=== PATIENT | male | born 1940 | race Caucasian/White ===

== ENCOUNTER 2016-09-22 07:36 | Emergency (ER) | payer OTHER ==
[~2016-09-22] VITALS: Ht 167.6 cm; Wt 90.2 kg
[~2016-09-22 07:36] MED LIST: INSDGI SC; LSNUNK; ZCRUNK
[2016-09-22 07:40] VITALS: TEMP 36.4; Ht 167.6 cm; Wt 90.2 kg
--- NOTE | 2016-09-22 08:02 | EMERGENCY ROOM VISIT NOTE ---
History First contact with patient: 07:45 Chief Complaint: SHOULDER PAIN Stated Complaint: RIGHT SHOULDER INJURY History of Present Illness The patient is a 76 year old male who presents to the Emergency Room with complaints of right shoulder pain Patient did some heavy lifting on Thursday, was fine then and most of Thursday. However, pain started Thursday evening. Described as dull pain, which becomes sharp with movement. Pain felt deep over the right scapula, associated with soreness in right upper arm. Pain exacerbated by movement, alleviated by rest. It had worsened overnight while sleeping with increased stiffness - had to dress him this morning because painful to move. But it has improved since this morning. Patient did not try any analgesics or heat/ice. Denies any swelling, skin redness, or discolouration. Denies trauma or fall. Previous injury to the arm - patient claims he had a muscle tear in is right upper arm previously Review of Systems See HPI for pertinent positives and negatives. A total of ten systems were reviewed and were otherwise negative. Past Medical/Surgical History Medical Problems: (1) Coronary artery disease (2) DIAB W OTH SPEC MANIFEST, TYPE II OR UNSPEC TYPE, NOT UNCNTR (3) HYPERTENSION NOS Surgical Problems: (1) H/O percutaneous transluminal coronary angioplasty (2) Stented coronary artery Family History Cancer Diabetes mellitus Heart disease Hypertension Social History Smoking Status: Never Smoker Marital Status: Housing Status: lives with significant other Occupation Status: retired Current/Historical Medications Scheduled Aspirin (Aspirin Ec), 81 MG PO DAILY Clopidogrel (Plavix Unknown Dose), 75 MG PO DAILY Insulin Aspart (Novolog), 15 UNITS SC TIDM Insulin Detemir (Levemir), 12 UNITS SC BID Losartan Potassium (Losartan Potassium), Unknown Dose PO DAILY Miscellaneous Medications Metoprolol Succ (Toprol Xl) (Toprol-Xl Unkown Dose) Allergies Coded Allergies: No Known Allergies (Unverified , 09/22/16) Physical Exam Vital Signs Date Time Temp Pulse Resp B/P Pulse Ox O2 Delivery O2 Flow Rate FiO2 09/22/16 08:49 73 153/71 97 09/22/16 07:40 36.4 73 17 155/78 97 Room Air Physical Exam GENERAL: alert, well appearing, well nourished, sitting in bed, no acute distress, non-toxic HEAD: Normocephalic, atraumatic. No sinus tenderness. EYES: PERRL, EOMI, normal conjunctiva OROPHARYNX: no exudate, no erythema, lips, buccal mucosa, and tongue normal and mucous membranes are dry NECK: supple, no nuchal rigidity, no adenopathy, non-tender LUNGS: Clear to auscultation. Normal chest wall mechanics, good air entry. No crepitations, crackles, or wheezes HEART: no murmurs, S1 normal and S2 normal CHEST: No reproducible tenderness. ABDOMEN: abdomen soft, non-tender, normo-active bowel sounds, no masses, no rebound or guarding. BACK: Back is symmetrical on inspection, no deformities, no midline tenderness, no CVA tenderness. Some tenderness on posterolateral ribs on right side. No swelling or bruising. SKIN: Warm, pink, dry. No erythema, rashes, or bruising. EXTREMITIES: Grossly normal. Moving all 4 limbs, strength 5/5. No pitting edema. Calves non tender. MSK: Slightly reduced ROM in right should on forward flexion, but patient denies pain on movement. 5/5 strength in upper limbs. NEURO: Alert, Ox3. No focal deficits. Normal sensorium, cranial nerves II-XII grossly intact, normal speech. Kernig and Brudzinski negative PSYCH: Mood and affect appropriate. Medical Decision & Procedures ER Provider Diagnostic Interpretation: RIGHT SHOULDER MIN 2 VIEWS ROUTINE CLINICAL HISTORY: Right shoulder pain COMPARISON: None. DISCUSSION: The patient can internally and externally rotate fully. No fractures or dislocations are visualized. There are no visible periarticular calcifications. No destructive lesions are evident. There is no evidence for soft tissue swelling. IMPRESSION: No fractures or dislocations identified. There are no visible periarticular calcifications. RIGHT RIBS UNILATERAL WITH PA CHEST CLINICAL HISTORY: Right rib pain following injury. COMPARISON STUDY: No previous studies for comparison. FINDINGS: There is no pneumothorax or pleural effusion. Cardiac size is within normal limits. There is no evidence of pulmonary edema. Minimal left lower lung opacity may reflect atelectasis. There is a suspected hiatal hernia. No definite acute right rib fractures are identified. There are deformities of the anterior right seventh and eighth ribs. IMPRESSION: No pneumothorax. Deformities of the anterior right seventh and eighth ribs. Although age indeterminate, the appearance favors old fractures. Medical Decision 76 year old male presented with right shoulder pain The patient was evaluated in room C6. A complete history and physical exam was performed. Etiologies such as soft tissue injury, fracture, dislocation, neurovascular compromise, compartment syndrome, as well as others were entertained. Patient declined analgesics for symptom relief. CXR reported no fractures or dislocations identified. There are no visible periarticular calcifications. No pneumothorax. Deformities of the anterior right seventh and eighth ribs. Although age indeterminate, the appearance favors old fractures. Likely diagnosis is thoracic back pain. As such, patient advised for conservative management with Tylenol or Motrin for pain relief and increased oral fluid intake to improve hydration status. Patient understands and agreeable with care plan. Patient discharged home well. Impression Primary Impression: Back pain, thoracic Departure Information Dispostion Home / Self-Care Condition GOOD Referrals Perico Peña M.D.(DANNI) (PCP) Patient Instructions A Signature Page, My [facility]
--- NOTE | 2016-09-22 08:23 | EMERGENCY ROOM VISIT NOTE ---
History Report prepared by Jennifer: Micki Castle Under the Supervision of: Dr. Landon Ball M.D. First contact with patient: 07:45 Chief Complaint: SHOULDER PAIN Stated Complaint: RIGHT SHOULDER INJURY History of Present Illness The patient is a 76 year old male who presents to the Emergency Room with complaints of persistent right shoulder pain that began last evening. He currently rates his discomfort as an 8/10 in severity. The patient states that on Thursday he was doing some heavy lifting and states that he was feeling fine all day on Thursday. He states that he developed sharp pain on Thursday evening. The patient states that his pain is worsened with movement, noting that it is sharp, but states that it is dull with slight movement. He states that his pain is alleviated with rest. The patient denies any chest pain, shortness of breath, or fever today and denies the pain radiating to any other part of his body. He states that he has not taken anything for his discomfort. The patient states that his pain worsened over night, noting that he woke up stiff. Source of History: patient Onset: last evening Position: shoulder (right) Symptom Intensity: 8/10 Quality: sharp, dull Timing: other (persistent) Modifying Factors (Worsening): movement Modifying Factors (Relieving): rest ( ) Associated Symptoms: No SOB, No chest pain Note: Associated Symptoms: woke up stiff Review of Systems See HPI for pertinent positives & negatives. A total of 10 systems reviewed and were otherwise negative. Past Medical & Surgical Medical Problems: (1) Coronary artery disease (2) DIAB W OTH SPEC MANIFEST, TYPE II OR UNSPEC TYPE, NOT UNCNTR (3) HYPERTENSION NOS Surgical Problems: (1) H/O percutaneous transluminal coronary angioplasty (2) Stented coronary artery Family History Cancer Diabetes mellitus Heart disease Hypertension Social History Smoking Status: Never Smoker Marital Status: Housing Status: lives with significant other Occupation Status: retired Current/Historical Medications Scheduled Aspirin (Aspirin Ec), 81 MG PO DAILY Clopidogrel (Plavix Unknown Dose), 75 MG PO DAILY Insulin Aspart (Novolog), 15 UNITS SC TIDM Insulin Detemir (Levemir), 12 UNITS SC BID Losartan Potassium (Losartan Potassium), Unknown Dose PO DAILY Miscellaneous Medications Metoprolol Succ (Toprol Xl) (Toprol-Xl Unkown Dose) Allergies Coded Allergies: No Known Allergies (Unverified , 09/22/16) Physical Exam Vital Signs Date Time Temp Pulse Resp B/P Pulse Ox O2 Delivery O2 Flow Rate FiO2 09/22/16 08:49 73 153/71 97 09/22/16 07:40 36.4 73 17 155/78 97 Room Air Physical Exam GENERAL: Patient is a healthy-appearing well-nourished HEAD: Normocephalic atraumatic EYES: Ocular movements intact pupils equal and react to light OROPHARYNX mucous membranes are moist no exudates present no erythema or edema present NECK: Supple no nuchal rigidity CHEST: Good equal expansion LUNGS: Clear and equal to auscultation CARDIAC: Normal S1 and S2 ABDOMEN: Soft nontender no guarding BACK: Point tender to the 8th and 9th rib area on back. No midline tenderness. EXTREMITIES: No pain upon palpation normal muscle strength in all groups no clubbing cyanosis or edema NEURO: Patient is following commands is answering questions appropriately. Alert and oriented x3 Cranial Nerves 2-12 grossly intact Medical Decision & Procedures ER Provider Diagnostic Interpretation: X-ray results as stated below per interpretation by me and the radiologist: RIGHT RIBS UNILATERAL WITH PA CHEST CLINICAL HISTORY: Right rib pain following injury. COMPARISON STUDY: No previous studies for comparison. FINDINGS: There is no pneumothorax or pleural effusion. Cardiac size is within normal limits. There is no evidence of pulmonary edema. Minimal left lower lung opacity may reflect atelectasis. There is a suspected hiatal hernia. No definite acute right rib fractures are identified. There are deformities of the anterior right seventh and eighth ribs. IMPRESSION: No pneumothorax. Deformities of the anterior right seventh and eighth ribs. Although age indeterminate, the appearance favors old fractures. Electronically signed by: Vinay Graham M.D. 09/22/2016 8:35 AM Dictated Date/Time: 09/22/2016 8:30 AM RIGHT SHOULDER MIN 2 VIEWS ROUTINE CLINICAL HISTORY: Right shoulder pain COMPARISON: None. DISCUSSION: The patient can internally and externally rotate fully. No fractures or dislocations are visualized. There are no visible periarticular calcifications. No destructive lesions are evident. There is no evidence for soft tissue swelling. IMPRESSION: No fractures or dislocations identified. There are no visible periarticular calcifications. Electronically signed by: Dillon Alvarez M.D. 09/22/2016 8:32 AM Dictated Date/Time: 09/22/2016 8:31 AM ED Course 0746: Past medical records reviewed. The patient was evaluated in room B6. A complete history and physical examination was performed by the resident. 0815: Past medical records reviewed. The patient was evaluated in room B6. A complete history and physical examination was performed. 0842: I reevaluated the patient and he is resting comfortably. I discussed the exam findings with him and I discussed the treatment plan. He verbalized complete understanding and agreement. He is ready to go home. Medical Decision Differential diagnosis: Etiologies such as fracture, dislocation, neurovascular compromise, compartment syndrome, soft tissue injury, as well as others were entertained. This is a 76-year-old male who presents emergency department complaining of muscle skeletal back pain. The patient reports that the pain was worse when he is straining his back. He reports he was lifting large bags foreign several days ago. The patient reports that the pain is much better after stretching today. He is refusing pain medication in the emergency department. His x-rays are consistent with rib fractures in the Gen area for where the patient is having pain. I encouraged follow-up with orthopedics if he is continuing to have pain. I also recommended that he return to the emergency department if he develops any chest pain or shortness of breath. Patient was in agreement with the treatment plan. Resident Physician Supervision Note: I was present with Dr. Collins during the history and exam. I discussed the case with the resident and agree with the findings and plan as documented in the note. Documented By: Landon Ball Impression Primary Impression: Back pain, thoracic Scribe Attestation The scribe's documentation has been prepared under my direction and personally reviewed by me in its entirety. I confirm that the note above accurately reflects all work, treatment, procedures, and medical decision making performed by me. Departure Information Dispostion Home / Self-Care Referrals Perico Peña M.D.(DANNI) (PCP) Forms HOME CARE DOCUMENTATION FORM, IMPORTANT VISIT INFORMATION, School Instructions, Work Instructions Patient Instructions A Signature Page, ED Back Care Tips, Exercises Back Seated Rotation, Exercises Back Side Stretch, My [facility], Safety Back Basics Good Posture Additional Instructions Follow up with Dr Nixon's office You have been examined and treated today on an emergency basis only. This is not a substitute for, or an effort to provide, complete comprehensive medical care. It is impossible to recognize and treat all injuries or illnesses in a single emergency department visit. It is therefore important that you follow up closely with Dr Peña. Call as soon as possible for an appointment. Thank you for your time and consideration. I look forward to speaking with you again soon. Please don't hesitate to call us if you have any questions.
[2016-09-22] MEDS ORDERED: ASPI81TA28 PO (08:33)
[2016-09-22] MEDS ORDERED: LVMI SC (08:33)
[2016-09-22] MEDS ORDERED: CZR50 PO (08:33)
--- NOTE | 2016-09-22 08:34 | DIAGNOSTIC IMAGING REPORT ---
RIGHT SHOULDER MIN 2 VIEWS ROUTINE CLINICAL HISTORY: Right shoulder pain COMPARISON: None. DISCUSSION: The patient can internally and externally rotate fully. No fractures or dislocations are visualized. There are no visible periarticular calcifications. No destructive lesions are evident. There is no evidence for soft tissue swelling. IMPRESSION: No fractures or dislocations identified. There are no visible periarticular calcifications. Electronically signed by: Dillon Alvarez M.D. 09/22/2016 8:32 AM Dictated Date/Time: 09/22/2016 8:31 AM
--- NOTE | 2016-09-22 08:37 | DIAGNOSTIC IMAGING REPORT ---
RIGHT RIBS UNILATERAL WITH PA CHEST CLINICAL HISTORY: Right rib pain following injury. COMPARISON STUDY: No previous studies for comparison. FINDINGS: There is no pneumothorax or pleural effusion. Cardiac size is within normal limits. There is no evidence of pulmonary edema. Minimal left lower lung opacity may reflect atelectasis. There is a suspected hiatal hernia. No definite acute right rib fractures are identified. There are deformities of the anterior right seventh and eighth ribs. IMPRESSION: No pneumothorax. Deformities of the anterior right seventh and eighth ribs. Although age indeterminate, the appearance favors old fractures. Electronically signed by: Vinay Graham M.D. 09/22/2016 8:35 AM Dictated Date/Time: 09/22/2016 8:30 AM
[2016-09-22 08:49] VITALS: BP 153/71; PULSE 73; O2SAT 97
[2016-09-22] MEDS ORDERED: NVLGI SC (18:33)
[2016-09-22] MEDS ORDERED: TPRSRUNK (18:33)
[2016-09-22] MEDS ORDERED: PLVUNK PO (18:33)
== END 2016-09-22 08:50 | disposition home or self-care (01) ==
LOC: C.EDB 07:38
DX: M54.6 Pain in thoracic spine (principal); M25.511 Pain in right shoulder; I25.10 Atherosclerotic heart disease of native coronary artery without angina pectoris; I10 Essential (primary) hypertension; E11.9 Type 2 diabetes mellitus without complications; Z98.61 Coronary angioplasty status; Z79.4 Long term (current) use of insulin; Z79.02 Long term (current) use of antithrombotics/antiplatelets; Z79.82 Long term (current) use of aspirin; Z79.899 Other long term (current) drug therapy

== ENCOUNTER → 2018-04-22 | Outpatient (CLI) | payer OTHER ==
[~2018-04-22] MED LIST changes: +ASPI81TA28 PO; +CZR50 PO; -INSDGI SC; -LSNUNK; +LVMI SC; +NVLGI SC; +PLVUNK PO; +TPRSRUNK; -ZCRUNK
[2018-04-22 15:15] LABS: CREATININE RANDOM URINE 86.7 mg/dl
== END | disposition home or self-care (01) ==
LOC: C.LAB1850 13:45
PROVIDERS: ATTEND Internal Medicine Endocrinology, Diabetes & Metabolism
DX: E10.9 Type 1 diabetes mellitus without complications (principal); Z79.4 Long term (current) use of insulin

== ENCOUNTER 2024-03-23 11:26 | Inpatient (IN) ==
--- NOTE | 2024-03-23 12:13 | Emergency Department Note ---
Impression & Plan Acute appendicitis, DM type 1 (diabetes mellitus, type 1) ED Provider Note Provider: Jatinder Oliva MD DATE OF SERVICE: 03/23/2024 CHIEF COMPLAINT: Right lower quadrant abdominal pain HISTORY OF PRESENT ILLNESS: Patient is a 84-year-old gentleman history of CAD on Plavix, type 1 diabetes presenting here today with 2 days of pain in the right lower quadrant. States he was planning on Thursday but did not have any kick backs or significant trauma and developed then some pain in right upper quadrant worsened yesterday and not been eating well and resting more. No significant diarrhea or urinary issues reported. No significant back pain or chest pain. Pain worse with moving and touch to the right lower quadrant. No large masses reported. Did take some Tylenol yesterday with limited improvement of pain. Does report having some chills. Came here for further evaluation. Denies any history of significant intra-abdominal surgeries. No radiation of the pain down the legs. No significant back pain reported. PAST MEDICAL HISTORY: As noted above MEDICATIONS: Reviewed medications includes continuous glucose monitor SOCIAL HISTORY: Non-smoker PHYSICAL EXAM: GENERAL: alert and oriented in no acute distress on stretcher Head: normocephalic and atraumatic EYES: No injection, discharge or icterus. NECK: Trachea midline. Supple. ENT: Mucous membranes pink and moist. LUNGS: Airway patent. No retractions or tachypnea HEART: Regular rate and rhythm. No chest wall tenderness ABDOMEN: Soft significant focal tenderness in right lower quadrant without obvious appreciable mass or hernia. Minimal to no tenderness the right upper quadrant no tenderness in the left side of the abdomen. SKIN: Acyanotic, warm, dry, without rashes EXTREMITIES: Without swelling, tenderness or deformity NEUROLOGICAL: No focal deficits. No aphasia. No facial droop or slurred speech. Normal strength and tone in the extremities. Sensation to gross touch normal. Ambulatory but with some discomfort due to pain in the right lower abdomen EK bpm sinus rhythm with occasional supraventricular complexes. No acute ST segment elevation or depression with a QTc of 432. CONTINUOUS CARDIAC MONITORING: was ordered and showed a heart rate of 70s-80s bpm in sinus rhythm occasional PACs Patient's laboratory studies and imaging reviewed. Differential includes Appendicitis, testicular torsion, infections, diverticulitis, UTI, obstruction, mesenteric ischemia, aortic pathology, inflammatory bowel disease, renal colic, PUD, pancreatitis, biliary pathology, hernia, volvulus, constipation, as well as other pathologies. IMPRESSION/MEDICAL DECISION MAKING: Right lower quadrant pain. Possible appendicitis versus kidney stone versus hernia versus colitis. Patient with decent mount of pain but not febrile or hypotensive. No chest pain or significant shortness of breath reported. Type 1 diabetes and cardiac history is relayed however. Seems atypical given location for cholecystitis or pancreatitis. Not peritoneal but fairly tender in the right lower quadrant. Denies symptoms. Urinalysis negative for signs of infection. Later given low bit of fentanyl for pain with improvement of this. Imaging consistent with nonperforated appendicitis. Leukocytosis inconsistent as well. No evidence of hepatitis or pancreatitis. Urinalysis negative. Given some Bentyl for pain. Cover Zosyn for antibiotics. Reach out to general surgery given the findings discussed surgical intervention. They recommended medical admission at this time and they will follow in consult. Hospitalist was consulted. DIAGNOSIS: Acute appendicitis DISPOSITION: Hospitalist will evaluate as well as the general surgery team Patient was agreeable with this plan. Past Med/Surg History Problem List (Updated 03/23/24 @ 16:01 by Jatinder Oliva M.D.) DM type 1 (diabetes mellitus, type 1) (Acute) Acute appendicitis (Acute) Vitamin D deficiency Coronary artery disease (Chronic) Stented coronary artery (Chronic) Back pain, thoracic (Acute) Social History Smoking Status: Never smoker Feels Safe at Home: Yes Allergies Allergies Allergy/AdvReac Type Severity Reaction Status Date / Time [place] And Derivatives Allergy Severe Swelling Unverified 03/23/24 14:56 of Lip/Tongue/Throat lisinopril Allergy Verified 03/23/24 14:56 Home Meds Home Medications Medication Instructions Recorded Confirmed atorvastatin 40 mg tablet 40 mg PO HS #90 tabs 06/21/19 03/23/24 clopidogrel 75 mg tablet 75 mg PO DAILY 06/21/19 03/23/24 metoprolol succinate 100 mg 100 mg PO DAILY 06/21/19 03/23/24 tablet,extended release 24 hr omeprazole magnesium 20 mg 20 mg PO DAILY 06/21/19 03/23/24 tablet,delayed release blood sugar diagnostic (OneTouch #10 ea 06/23/19 06/25/23 Ultra Blue Test Strip) tamsulosin 0.4 mg capsule (Flomax) 0.4 mg PO DAILY 12/25/20 03/23/24 glucagon 3 mg/actuation nasal 3 mg intranasal DAILY PRN 05/15/22 03/23/24 spray (Baqsimi) Hypoglycemia Previous Rx's Medication Instructions Recorded BD Ultra-Fine Eleanor Pen Needle 32 #400 ea 06/06/19 gauge x 5/32" (pen needle, diabetic) insulin pump cartridge #40 ea 10/11/22 insulin glargine 100 unit/mL (3 30 unit (0.3 mL) subcut DAILY #15 01/03/23 mL) subcutaneous pen (Lantus mL Solostar U-100 Insulin) insulin aspart U-100 100 unit/mL 66 unit (0.66 mL) subcut ONCE #60 11/13/23 subcutaneous solution (Novolog mL U-100 Insulin aspart) insulin pump cart,automated,BT #45 ea 11/13/23 (Omnipod 5 G6 Pods (Gen 5) subcutaneous cartridge) insulin pump cartridge,automated #1 ea 02/11/24 dose,BT with controller subcutaneous (Omnipod 5 G6 Intro Kit (Gen 5) subcutaneous cartridge with controller) Results & Data (ED) Vital Signs Vital Signs - 24 hr 03/23/24 11:29 03/23/24 12:28 03/23/24 14:08 Temperature 36.6 C Temperature Source Oral Pulse Rate 82 Pulse Rate [Left Finger] 74 74 Pulse Rhythm [Left Finger] Regular Regular Pulse Strength [Left Finger] Normal Normal Respiratory Rate 16 18 20 Respiratory Effort / Characteristics Non-Labored Spontaneous Non-Labored Spontaneous Non-Labored Spontaneous Respiratory Depth Normal Normal Normal Respiratory Pattern Regular Regular Blood Pressure 170/69 H Blood Pressure [Right Arm] 147/71 H 136/64 Blood Pressure Mean 102 Blood Pressure Mean [Right Arm] 96 88 Blood Pressure Position [Right Arm] Sitting Sitting Pulse Oximetry 94 95 95 Oxygen Delivery Method Room Air Room Air Room Air Sepsis Recent Fever Within 48 Hours No Sepsis New/Unexplained Change in Mental Status No Sepsis Action Taken by Nursing No Action Required 03/23/24 15:38 Temperature Temperature Source Pulse Rate Pulse Rate [Left Finger] 77 Pulse Rhythm [Left Finger] Pulse Strength [Left Finger] Respiratory Rate 16 Respiratory Effort / Characteristics Respiratory Depth Normal Respiratory Pattern Blood Pressure Blood Pressure [Right Arm] 125/68 Blood Pressure Mean Blood Pressure Mean [Right Arm] 87 Blood Pressure Position [Right Arm] Pulse Oximetry 93 Oxygen Delivery Method Room Air Sepsis Recent Fever Within 48 Hours Sepsis New/Unexplained Change in Mental Status Sepsis Action Taken by Nursing Laboratory Data 03/23/24 12:00 03/23/24 12:00 Lab Results 03/23/24 03/23/24 03/23/24 Range/Units 11:55 12:00 12:19 WBC 14.38 H (4.8-10.8) K/ul RBC 4.58 L (4.70-6.10) M/uL Hgb 14.0 (14.0-18.0) g/dl POC Hgb 15.0 (14.0-18.0) g/dl Hct 42.4 (42.0-52.0) % POC Hct 44 (42-52) % MCV 92.6 (80.0-100.0) fL MCH 30.6 (25.0-34.0) pg MCHC 33.0 (32.0-36.0) g/dL RDW Std Deviation 43.5 (36.4-46.3) fL RDW Coeff of Alyssa 12.8 (11.5-14.5) % Plt Count 186 (130-400) K/uL MPV 11.0 (9.4-12.4) fL Immature Gran % (Auto) 0.4 % Neut % (Auto) 85.3 % Lymph % (Auto) 6.7 % Upson % (Auto) 7.2 % Eos % (Auto) 0.1 % Baso % (Auto) 0.3 % Neut # (Auto) 12.26 H (1.40-6.50) K/uL Lymph # (Auto) 0.96 L (1.20-3.40) K/uL [place]pson # (Auto) 1.04 H (0.11-0.59) K/uL Eos # (Auto) 0.02 (0.00-0.50) K/uL Baso # (Auto) 0.04 (0.00-0.20) K/uL Immature Gran # (Auto) 0.06 (0.01-0.20) K/uL POC Sodium 134 L (135-144) mmol/L Sodium 135 L (136-145) mmol/L POC Potassium 4.6 (3.3-5.0) mmol/L Potassium 4.2 (3.5-5.1) mmol/L POC Chloride 99 L (101-112) mmol/L Chloride 100 (98-107) mmol/L Carbon Dioxide 28 (21-32) mmol/L POC Total CO2 28 (24-31) mmol/L Anion Gap 7 (3-11) POC Anion Gap 13.0 L (16-25) mmol/L POC BUN 23 H (7-18) mg/dl BUN 18 (6-23) mg/dl Creatinine 0.89 (0.6-1.4) mg/dl POC Creatinine 0.9 (0.6-1.3) mg/dl Est Cr Clr Drug Dosing 62.6 ml/min Est GFR ( Amer) 92.3 ml/min Est GFR (Non-Af Amer) 79.6 ml/min BUN/Creatinine Ratio 20.2 H (10-20) Glucose 96 (70-99(Fasting)) mg/dl POC Glucose (other) 95 (70-99) mg/dl Calcium 8.9 (8.6-10.3) mg/dl POC Ioniz Calcium Pura 1.08 L (1.12-1.32) mmol/l Total Bilirubin 1.0 (0.2-1.0) mg/dl AST 20 (13-39) U/L ALT 15 (7-52) U/L Alkaline Phosphatase 69 (34-104) U/L Troponin I High Sens 8.9 (0-20) pg/ml Total Protein 7.3 (6.0-8.3) gm/dl Albumin 4.1 (3.4-5.0) gm/dl Globulin 3.2 (2.5-4.0) gm/dl Albumin/Globulin Ratio 1.3 (0.9-2) Lipase < 3 L (11-82) U/L Urine Color Dark Yellow Urine Appearance Clear (Clear) Urine pH 5.0 (4.5-7.5) Ur Specific [place] 1.031 H (1.000-1.030) Urine Protein 2+ H (Negative) Urine Glucose (UA) Negative (Negative) Urine Ketones 1+ H (Negative) Urine Blood 1+ H (Negative) Urine Nitrite Negative (Negative) Urine Bilirubin Negative (Negative) Urine Urobilinogen Negative (Negative) Ur Leukocyte Esterase Negative (Negative) Urine WBC (Auto) 0-5 (0-5) /hpf Urine RBC (Auto) 3-5 H (0-2) /hpf U Hyaline Cast (Auto) 0-2 (0-2) /lpf U Epithel Cells (Auto) 0-2 (0-2) /hpf Urine Bacteria (Auto) None Seen (None Seen) Urine Mucus Present A (None Prsent) Administered Medications Discontinued Medications Fentanyl Citrate (Fentanyl Citrate Pf 100 Mcg/2 Ml Vial) 50 mcg IV NOW STA Stop: 03/23/24 14:09 Last Admin: 03/23/24 14:11 Dose: 50 mcg Documented By: SHERMAN Piperacillin Sod/Tazobactam Sod (Zosyn) 4.5 gm in 100 mls @ 200 mls/hr IV NOW ONE Stop: 03/23/24 14:46 Last Admin: 03/23/24 14:31 Dose: 200 mls/hr Documented By: SHERMAN Sodium Chloride (Nss) 1,000 mls @ 999 mls/hr IV .Q1H1M ONE Stop: 03/23/24 15:51 Last Admin: 03/23/24 14:56 Dose: 999 mls/hr Documented By: SHERMAN Ioversol (Optiray 320 100ml) 93 ml IV ONCE ONE Stop: 03/23/24 12:40 Last Admin: 03/23/24 12:40 Dose: 93 ml Documented By: MANNIE Imaging Data Radiologist's Impression: Abdomen/Pelvis CT 03/23/24 11:[address] WITH IV CONTRAST CT DOSE: 1178.8 mGy.cm HISTORY: Acute right lower quadrant abdominal pain RLQ ABD PAIN X 2 DAYS TECHNIQUE: Multiaxial CT images of the abdomen and pelvis were performed following the IV administration of 93 cc of Optiray, A dose lowering technique was utilized adhering to the principles of ALARA. COMPARISON STUDY: None. FINDINGS: Mild cardiomegaly. Extensive coronary artery calcifications. Mild bibasilar atelectasis. No free air. Unremarkable spleen, moderately atrophic pancreas and right adrenal gland. Left adrenal gland thickening suggestive of hyperplasia. Unremarkable gallbladder and liver. Patency of the hepatic and portal veins. Unremarkable kidneys without hydronephrosis. 1.8 cm cyst of the superior pole right kidney. Decompressed bladder with wall thickening. Prostatomegaly. Small fat filled inguinal hernias. Atherosclerosis of the aorta without aneurysm. No lymphadenopathy. Moderate-sized hiatal hernia with distal esophageal wall thickening. No bowel obstruction. The appendix is dilated and fluid-filled measuring up to 1.6 cm containing an 8 mm appendicolith. There is irregularity of the appendiceal tip with adjacent inflammatory stranding and trace ascites. Mild wall thickening at the dates of the cecum and terminal ileum, likely reactive. Small fat filled ventral hernia. No acute fracture. IMPRESSION: 1. Acute appendicitis with appendicoliths. 2. No pneumoperitoneum or abscess identified at this time. 3. No bowel obstruction. 4. Moderate-sized hiatal hernia. ACT 112: Negative or not required by law. The above report was generated using voice recognition software. It may contain grammatical, syntax or spelling errors. Electronically signed by: Home Cha M.D. 03/23/2024 2:08 PM Discharge Plan Visit Data Chief Complaint: Abdominal Pain Stated Complaint: LOWER ABD PAIN ONGOING ED Provider: Jatinder Oliva Discharge Problem: Acute appendicitis, DM type 1 (diabetes mellitus, type 1) Patient Disposition: Being Evaluated by Hospitalist Forms Stand Alone Forms: [facility] [place] [employer] Prescriptions Prescriptions: No Action (DME) pen needle, diabetic [BD Ultra-Fine Eleanor Pen Needle] 32 gauge x 5/32" needle See Dose Instructions .ROUTE .MEDSUPPLY Qty: 400 3RF Dose Instruction: As directed Rx Instructions: Use 4 needles daily with insulin (DME) insulin pump cartridge Cartridge See Rx Instructions .Route Qty: 40 3RF Rx Instructions: Change Pod every 2 to 3 days subq or 60 hours insulin glargine [Lantus Solostar U-100 Insulin] 100 unit/mL (3 mL) insulin pen 30 unit subcut DAILY Qty: 15 2RF Rx Instructions: up to 30 units daily in case of pump/omnipod failure (DME) Omnipod 5 G6 Pods (Gen 5) Cartridge See Rx Instructions .Route Qty: 45 2RF Rx Instructions: change pod Q2D insulin aspart U-100 [Novolog U-100 Insulin aspart] 100 unit/mL solution 66 unit subcut ONCE MDD 66 Qty: 60 3RF Rx Instructions: To be used in his pump/omnipod (DME) Omnipod 5 G6 Intro Kit (Gen 5) Cartridge See Rx Instructions .Route Qty: 1 0RF Rx Instructions: change pod Q3D atorvastatin 40 mg tablet 40 mg PO HS Qty: 90 clopidogrel 75 mg tablet 75 mg PO DAILY Prilosec OTC 20 mg tablet,delayed release (DR/EC) 20 mg PO DAILY metoprolol succinate 100 mg tablet extended release 24 hr 100 mg PO DAILY (DME) OneTouch Ultra Blue Test Strip strip See Dose Instructions .ROUTE .MEDSUPPLY Qty: 10 Rx Instructions: test blood 1 time daily as needed tamsulosin [Flomax] 0.4 mg capsule 0.4 mg PO DAILY Baqsimi 3 mg/actuation spray,non-aerosol 3 mg intranasal DAILY PRN (Reason: Hypoglycemia) Referrals Referrals: Edson Landon MD [Primary Care Provider] - Discharge Problem: Acute appendicitis Qualifiers: Acute appendicitis type: unspecified acute appendicitis type Qualified Code(s): K35.80 - Unspecified acute appendicitis DM type 1 (diabetes mellitus, type 1) Qualifiers: Diabetes mellitus complication status: with other specified complication Q ualified Code(s): E10.69 - Type 1 diabetes mellitus with other specified complication
[2024-03-23 12:31] LABS: iSTAT Creatinine 0.9 mg/dl (0.6-1.3); iSTAT Ionized Calcium 1.08 mmol/l (1.12-1.32); iSTAT Potassium 4.6 mmol/L (3.3-5.0)
[2024-03-23 12:31] LABS: Basophils # (auto) 0.04 K/uL (0.00-0.20); Basophils % (auto) 0.3 %; Eosinophils # (auto) 0.02 K/uL (0.00-0.50); Eosinophils % (auto) 0.1 %; Hematocrit (blood only) 42.4 % (42.0-52.0); Immature Granulocytes # (auto) 0.06 K/uL (0.01-0.20); Immature Granulocytes % (auto) 0.4 %; Lymphocytes # (auto) 0.96 K/uL (1.20-3.40); Lymphocytes % (auto) 6.7 %; Mean Corpuscular Hemoglobin 30.6 pg (25.0-34.0); Mean Corpuscular Volume 92.6 fL (80.0-100.0); Monocytes # (auto) 1.04 K/uL (0.11-0.59); Monocytes % (auto) 7.2 %; Neutrophils # (auto) 12.26 K/uL (1.40-6.50); Neutrophils % (auto) 85.3 %; Platelet Count 186 K/uL (130-400); RDW Coefficient of Variation 12.8 % (11.5-14.5); RDW Standard Deviation 43.5 fL (36.4-46.3); Red Blood Count 4.58 M/uL (4.70-6.10); White Blood Count 14.38 K/ul (4.8-10.8)
[2024-03-23 12:32] LABS: Appearance Urine Clear (Clear); Bacteria Urine Automated None Seen (None Seen); Bilirubin Urine Negative (Negative); Blood Urine 1+ (Negative); Cast Urine Automated 0-2 /lpf (0-2); Color Urine Dark Yellow; Epithelial Cell Urine Auto 0-2 /hpf (0-2); Glucose Urine UA Negative (Negative); Ketones Urine 1+ (Negative); Leukocyte Esterase Urine Negative (Negative); Mucus Urine Present (None Prsent); Nitrite Urine Negative (Negative); Protein Urine 2+ (Negative); Specific Gravity Urine 1.031 (1.000-1.030); Urobilinogen Urine Negative (Negative); WBC Urine Automated 0-5 /hpf (0-5)
[2024-03-23] MEDS: OPTIRAY 320 100ml IV ONE (12:40)
[2024-03-23 12:44] LABS: Anion Gap 7 (3-11); BUN Creatinine Ratio 20.2 (10-20); Blood Urea Nitrogen 18 mg/dl (6-23); Calcium 8.9 mg/dl (8.6-10.3); Carbon Dioxide 28 mmol/L (21-32); Chloride 100 mmol/L (98-107); Creatinine Clr Calc Pharmacy 62.6 ml/min; Est GFR (African American) 92.3 ml/min; Est GFR (Non-African American) 79.6 ml/min; Glucose 96 mg/dl (70-99(Fasting)); Potassium 4.2 mmol/L (3.5-5.1); Sodium 135 mmol/L (136-145)
[2024-03-23 12:50] LABS: Alanine Aminotransferase 15 U/L (7-52); Albumin Globulin Ratio 1.3 (0.9-2); Albumin Level 4.1 gm/dl (3.4-5.0); Alkaline Phosphatase 69 U/L (34-104); Aspartate Aminotransferase 20 U/L (13-39); Globulin 3.2 gm/dl (2.5-4.0); Lipase < 3 U/L (11-82); Total Protein 7.3 gm/dl (6.0-8.3); Troponin I High Sensitivity 8.9 pg/ml (0-20)
--- NOTE | 2024-03-23 12:57 | Electrocardiogram Report ---
Test Reason : Blood Pressure : / mmHG Vent. Rate : 082 BPM Atrial Rate : 082 BPM P-R Int : 148 ms QRS Dur : 086 ms QT Int : 370 ms P-R-T Axes : 007 022 061 degrees QTc Int : 432 ms Sinus rhythm with Premature supraventricular complexes Otherwise normal ECG When compared with ECG of 10-JAN-2014 16:28, No significant change was found Confirmed by Shawn Ingram ([id number]) on 03/23/2024 12:57:06 PM Referred By: Confirmed By:Zay Ingram
--- NOTE | 2024-03-23 14:10 | CT Scan Report ---
ABDOMEN AND PELVIS CT WITH IV CONTRAST CT DOSE: 1178.8 mGy.cm HISTORY: Acute right lower quadrant abdominal pain RLQ ABD PAIN X 2 DAYS TECHNIQUE: Multiaxial CT images of the abdomen and pelvis were performed following the IV administrat ion of 93 cc of Optiray, A dose lowering technique was utilized adhering to the principles of ALARA. COMPARISON STUDY: None. FINDINGS: Mild cardiomegaly. Extensive coronary artery calcifications. Mild bibasilar atelectasis. No free air. Unremarkable spleen, moderately atrophic pancreas and right adrenal gland. Left adrenal gl and thickening suggestive of hyperplasia. Unremarkable gallbladder and liver. Patency of the hepatic and portal veins. Unremarkable kidneys without hydronephrosis. 1.8 cm cyst of the superior pole right kidney. Decompres sed bladder with wall thickening. Prostatomegaly. Small fat filled inguinal hernias. Atherosclerosis of the aorta without aneurysm. No lymphadenopathy. Moderate-sized hiatal hernia with distal esophagea l wall thickening. No bowel obstruction. The appendix is dilated and fluid-filled measuring up to 1.6 cm containing an 8 mm appendicolith. There is irregularity of the appendiceal tip with adjacent infl ammatory stranding and trace ascites. Mild wall thickening at the dates of the cecum and terminal ile um, likely reactive. Small fat filled ventral hernia. No acute fracture. IMPRESSION: 1. Acute appendicitis with appendicoliths. 2. No pneumoperitoneum or abscess identified at this time. 3. No bowel obstruction. 4. Moderate-sized hiatal hernia. ACT 112: Negative or not required by law. The above report was generated using voice recognition software. It may contain grammatical, syntax o r spelling errors. Electronically signed by: Home Cha M.D. 03/23/2024 2:08 PM
[2024-03-23] MEDS: fentaNYL citrate PF 100 MCG/2 ML VIAL IV STA (14:11)
[2024-03-23] MEDS: PIPERACILLIN/TAZOBACTAM 4.5 GM/100 ML BAG IV ONE (14:31)
[2024-03-23] MEDS: SODIUM CHLORIDE 0.9% 1,000 ML IV ONE (14:56)
--- NOTE | 2024-03-23 15:33 | Surgery Consultation ---
Date of Consultation March 23, 2024 Assessment & Plan (1) Acute appendicitis: This is an 84yM with a PMH of cardiac stent in 2003 at [facility] on plavix, Dm1, who presents to the [facility] ED on 03/23/24 with complaints of RLQ abdominal pain that started on thursday. It has been constant and only getting worse, therefore he presented to the ER for further evaluation. He underwent a CT a/p that revealed evidence of acute appendicitis without findings of perforation or abscess. Bloodwork shows elevated WBC of 14, hgb 14, cr 0.8. Vitals are stable and pt is afebrile. On exam abdomen is soft with tenderness elicited in the RLQ. Patient did take plavix this AM. Given bleeding risk we will ask the hospitalist to admit the patient and we will initiate treatment with IV abx, IVF and bowel rest for now. Please hold plavix starting now. Possibility of surgery next week pending his progress and chance he may not have to remain in the hospital while holding the plavix. We will keep a close eye on the patient and follow up blood work in the AM and trend vitals. Appreciate medicine assistance with the patient. History of Present Illness History of Present Illness This is an 84yM with a PMH of cardiac stent in 2003 at [facility] on plavix, Dm1, who presents to the [facility] ED on 03/23/24 with complaints of RLQ abdominal pain. Patient states his pain started thursday morning. It has been constant and only getting worse, therefore he presented to the ER for further evaluation. He underwent a CT a/p that revealed evidence of acute appendicitis without findings of perforation or abscess. Patient has + chills. He denies fevers, nausea/vomiting, CP/SOB, bloating. He reports pain is worse with movement. Reports feeling a bit constipated. Has no prior abdominal surgical history. Last ate a piece of pumpkin bread yesterday evening. He took his plavix this AM. 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 Allergies Allergy/AdvReac Type Severity Reaction Status Date / Time [place] And Derivatives Allergy Severe Swelling Unverified 03/23/24 14:56 of Lip/Tongue/Throat lisinopril Allergy Verified 03/23/24 14:56 Home Medications Medication Instructions Recorded Confirmed Type BD Ultra-Fine Eleanor Pen Needle 32 #400 ea 06/06/19 06/25/23 Rx gauge x 5/32" (pen needle, diabetic) atorvastatin 40 mg tablet 40 mg PO HS #90 tabs 06/21/19 03/23/24 History clopidogrel 75 mg tablet 75 mg PO DAILY 06/21/19 03/23/24 History metoprolol succinate 100 mg 100 mg PO DAILY 06/21/19 03/23/24 History tablet,extended release 24 hr omeprazole magnesium 20 mg 20 mg PO DAILY 06/21/19 03/23/24 History tablet,delayed release blood sugar diagnostic (OneTouch #10 ea 06/23/19 06/25/23 History Ultra Blue Test Strip) tamsulosin 0.4 mg capsule (Flomax) 0.4 mg PO DAILY 12/25/20 03/23/24 History glucagon 3 mg/actuation nasal 3 mg intranasal DAILY PRN 05/15/22 03/23/24 History spray (Baqsimi) Hypoglycemia insulin pump cartridge #40 ea 10/11/22 06/25/23 Rx insulin glargine 100 unit/mL (3 30 unit (0.3 mL) subcut DAILY #15 01/03/23 03/23/24 Rx mL) subcutaneous pen (Lantus mL Solostar U-100 Insulin) insulin aspart U-100 100 unit/mL 66 unit (0.66 mL) subcut ONCE #60 11/13/23 03/23/24 Rx subcutaneous solution (Novolog mL U-100 Insulin aspart) insulin pump cart,automated,BT #45 ea 11/13/23 Rx (Omnipod 5 G6 Pods (Gen 5) subcutaneous cartridge) insulin pump cartridge,automated #1 ea 02/11/24 Rx dose,BT with controller subcutaneous (Omnipod 5 G6 Intro Kit (Gen 5) subcutaneous cartridge with controller) Patient History Social History Smoking Status: Never smoker Second Hand Exposure: No; Do You Dip or Chew Tobacco: No; Hx Alcohol Use: Yes Hx Substance Use: No Preferred Language: Korean Communication Ability: Effective Federal Appellate Clerk Required: No Beliefs That Will Affect Care: None Current Living Situation: Spouse Other Information That Helps Us Care for You: No Feels Safe at Home: Yes Safety Concerns: Feels Safe At This Time Assistive Devices: None Assistive Devices Comment: uses a home made cane Review of Systems Constitutional: + chills; no fever Respiratory: no dyspnea Cardiovascular: no chest pain Gastrointestinal: + abdominal pain (rlq) and + constipatio n; no bloating, no nausea and no vomiting Genitourinary: no problem reported Physical Exam Physical Exam: awake/alert, no distress Constitutional: well developed and well nourished; no acute distress Respiratory: normal respiratory effort Gastrointestinal (Abdomen): Inspection/Auscultation: + abdomen distended (mild) Percussion/Palpation: + abdomen tender (ttp in the RLQ) and abdomen soft Results & Data Vital Signs (Past 12 Hours) Vital Signs Temp Pulse Pulse Resp BP BP Pulse Ox 03/23/24 14:08 74 20 136/64 95 03/23/24 12:28 74 18 147/71 H 95 03/23/24 11:29 97.9 F 82 16 170/69 H 94 O2 Del Method 03/23/24 14:08 Room Air 03/23/24 12:28 Room Air 03/23/24 11:29 Room Air Diagnostic Findings ABDOMEN AND PELVIS CT WITH IV CONTRAST CT DOSE: 1178.8 mGy.cm HISTORY: Acute right lower quadrant abdominal pain RLQ ABD PAIN X 2 DAYS TECHNIQUE: Multiaxial CT images of the abdomen and pelvis were performed following the IV administration of 93 cc of Optiray, A dose lowering technique was utilized adhering to the principles of ALARA. COMPARISON STUDY: None. FINDINGS: Mild cardiomegaly. Extensive coronary artery calcifications. Mild bibasilar atelectasis. No free air. Unremarkable spleen, moderately atrophic pancreas and right adrenal gland. Left adrenal gland thickening suggestive of hyperplasia. Unremarkable gallbladder and liver. Patency of the hepatic and portal veins. Unremarkable kidneys without hydronephrosis. 1.8 cm cyst of the superior pole right kidney. Decompressed bladder with wall thickening. Prostatomegaly. Small fat filled inguinal hernias. Atherosclerosis of the aorta without aneurysm. No lymphadenopathy. Moderate-sized hiatal hernia with distal esophageal wall thickening. No bowel obstruction. The appendix is dilated and fluid-filled measuring up to 1.6 cm containing an 8 mm appendicolith. There is irregularity of the appendiceal tip with adjacent inflammatory stranding and trace ascites. Mild wall thickening at the dates of the cecum and terminal ileum, likely reactive. Small fat filled ventral hernia. No acute fracture. IMPRESSION: 1. Acute appendicitis with appendicoliths. 2. No pneumoperitoneum or abscess identified at this time. 3. No bowel obstruction. 4. Moderate-sized hiatal hernia. ACT 112: Negative or not required by law. The above report was generated using voice recognition software. It may contain grammatical, syntax or spelling errors. Electronically signed by: Home Cha M.D. 03/23/2024 2:08 PM PG Care Time/CCT Total # of Minutes Spent Total Time Spent with Patient: Total time spent is greater than 50% in coordination of care (as documented) at patient's floor/unit and/or counseling patient: Coding Level of Care Code 87179 OP VST NEW MOD 45 MIN Diagnoses Acute appendicitis K35.80
--- NOTE | 2024-03-23 15:42 | History & Physical Report ---
Date of Service March 23, 2024 Assessment & Plan (1) Acute appendicitis: (2) Coronary artery disease: (3) DM type 1 (diabetes mellitus, type 1): Plan: 84 year old male with history of DM 1 on insulin pump, CAD s/p stent placement 2003, and other problems noted below presenting with RLQ pain x 2 days. ACUTE APPENDICITIS NPO IV ZOsyn IV fluids General surgery consulted- deferring surgery for now as patient took Plavix this morning monitor closely no medical contraindication to proceed with surgical intervention for appendicitis patient moderate to high risk for cardiopulmonary complications in light of advanced age, comorbidities CAD, S/P STENT 2003 no cardiac symptoms EKG: no signs of acute ischemia echo ordered continue usual Metoprolol, Lipitor hold Plavix in anticipation of surgery DM 1 on insulin pump will consult Pharmacy Glycemic Control service GERD continue Omeprazole BPH continue Tamsulosin DVT Prophylaxis SCDs for now Full code as per patient Disposition admit to Med Surg lives at home with plan of care discussed with patient in detail and at length all questions answered they are understanding, agreeable, comfortable with the plan of care History of Present Illness Chief Complaint: RLQ pain x 2 days Primary Care Provider: Edson Landon MD 84 year old male with history of DM 1 on insulin pump, CAD s/p stent placement 2003, and other problems noted below presenting with RLQ pain x 2 days. Patient states that since Thursday, he has had progressive RLQ pain, sharp, non radiating, associated with poor appetite, nausea, occasional chills. Pain worsened significantly to the point that he was having difficulty ambulating, prompting ER consult. On admission, patient's VS was relatively stable overall, no fever. WBC 14k CT abdomen/pelvis: acute appendicitis He was given IV Zosy, pain meds ER discussed case with Gen Surg, requested hospitalist service to admit patient given co morbidities. On exam, patient seen resting in bed, very pleasant, not in distress pain is much better as per patient, 2-11/21 no active nausea, chest pain, dyspnea, dizziness He continues to be active at home, doing woodwork. State he walks around the house fine, no unusual shortness of breath, chest pain, dizziness, presyncope, etc Allergies Allergy/AdvReac Type Severity Reaction Status Date / Time [place] And Derivatives Allergy Severe Swelling Unverified 03/23/24 14:56 of Lip/Tongue/Throat lisinopril Allergy Verified 03/23/24 14:56 Home Medications Medication Instructions Recorded Confirmed Type BD Ultra-Fine Eleanor Pen Needle 32 #400 ea 06/06/19 06/25/23 Rx gauge x 5/32" (pen needle, diabetic) atorvastatin 40 mg tablet 40 mg PO HS #90 tabs 06/21/19 03/23/24 History clopidogrel 75 mg tablet 75 mg PO DAILY 06/21/19 03/23/24 History metoprolol succinate 100 mg 100 mg PO DAILY 06/21/19 03/23/24 History tablet,extended release 24 hr omeprazole magnesium 20 mg 20 mg PO DAILY 06/21/19 03/23/24 History tablet,delayed release blood sugar diagnostic (OneTouch #10 ea 06/23/19 06/25/23 History Ultra Blue Test Strip) tamsulosin 0.4 mg capsule (Flomax) 0.4 mg PO DAILY 12/25/20 03/23/24 History glucagon 3 mg/actuation nasal 3 mg intranasal DAILY PRN 05/15/22 03/23/24 History spray (Baqsimi) Hypoglycemia insulin pump cartridge #40 ea 10/11/22 06/25/23 Rx insulin glargine 100 unit/mL (3 30 unit (0.3 mL) subcut DAILY #15 01/03/23 03/23/24 Rx mL) subcutaneous pen (Lantus mL Solostar U-100 Insulin) insulin aspart U-100 100 unit/mL 66 unit (0.66 mL) subcut ONCE #60 11/13/23 03/23/24 Rx subcutaneous solution (Novolog mL U-100 Insulin aspart) insulin pump cart,automated,BT #45 ea 11/13/23 Rx (Omnipod 5 G6 Pods (Gen 5) subcutaneous cartridge) insulin pump cartridge,automated #1 ea 02/11/24 Rx dose,BT with controller subcutaneous (Omnipod 5 G6 Intro Kit (Gen 5) subcutaneous cartridge with controller) Past Med/Surg History Problem List (Updated 03/23/24 @ 15:38 by Jermaine Mckeon MD) DM type 1 (diabetes mellitus, type 1) Acute appendicitis Vitamin D deficiency Coronary artery disease (Chronic) Stented coronary artery (Chronic) Back pain, thoracic (Acute) Social History Smoking Status: Never smoker Feels Safe at Home: Yes Review of Systems Review of Systems: all noted and negative except for above Physical Exam Physical Exam: General- oriented x 3, not in distress, speaks in sentences with no effort or accessory muscle use Head- atraumatic Eyes- PERRL, EOMI, anicteric ENT- oropharynx clear Neck- supple, no JVD, no adenopathy, no thyromegaly; carotids +2/2, no bruits appreciated Lungs- clear to auscultation bilaterally, no rales/wheezes Heart- normal rate, regular rhythm; no murmur, no gallop, no rub appreciated Abdomen- normal bowel sounds, nondistended, soft, (+) mild RLQ tenderness, no masses or hepatosplenomegaly Extremities- no pretibial edema, no calf tenderness; peripheral pulses intact Neuro- alert, oriented x 3; CN 2-12 grossly intact; motor 5/5 bilaterally;sensation 100% on all extremities; no other gross focal neurologic deficits Skin- warm & dry Results & Data Results & Data Vital Signs (Past 12 Hours) Vital Signs Temp Pulse Pulse Resp BP BP Pulse Ox 03/23/24 14:08 74 20 136/64 95 03/23/24 12:28 74 18 147/71 H 95 03/23/24 11:29 36.6 C 82 16 170/69 H 94 O2 Del Method 03/23/24 14:08 Room Air 03/23/24 12:28 Room Air 03/23/24 11:29 Room Air all noted and reviewed including below Code Status & VTE Plan VTE Prophylaxis Plan VTE Prophylaxis will be ordered: Yes
[2024-03-23] MEDS ORDERED: PHARMACY GLYCEMIC MGMT CONSULT PRN ×2 (17:07→23:16)
[2024-03-23] MEDS ORDERED: ONDANSETRON INJ 2 MG/ML 2 ML VIAL IV PRN (17:07)
[2024-03-23] MEDS ORDERED: CARBOHYDRATES FOR HYPOGLYCEMIA PO PRN (17:22)
[2024-03-23] MEDS ORDERED: INSULIN ASPART 100 UNITS/ML VIAL SC PRN (17:22)
[2024-03-23] MEDS ORDERED: GLUCAGON FOR INJ 1 MG VIAL SQ PRN (17:22)
[2024-03-23] MEDS ORDERED: GLUCOSE 40% GEL 15 GM TUBE PO PRN (17:22)
[2024-03-23] MEDS ORDERED: GLUCOSE 10 TAB/TUBE PO PRN (17:22)
[2024-03-23] MEDS: MoRPHine SULFATE 2 MG/ML CARP IV PRN (17:30)
[2024-03-23] MEDS: SODIUM CHLORIDE 0.9% 1,000 ML IV SCH (17:40)
[2024-03-23] MEDS: ACETAMINOPHEN 1,000 MG/100 ML VIAL IV SCH (17:40)
[2024-03-23] MEDS: INSULIN, Rapid-Acting PUMP SC SCH (18:16)
[2024-03-23] MEDS: PIPERACILLIN/TAZOBACTAM 4.5 GM in DEXTROSE 5% MINI-B 100 ML IV SCH (20:34)
[2024-03-23] MEDS: ATORVASTATIN 40 MG TAB PO SCH (21:48)
[2024-03-23] MEDS: DEXTROSE 50% 50 ML SYRINGE IV PRN (23:20)
[2024-03-24] MEDS: D5W AND NSS 1,000 ML IV SCH ×2 (01:00→17:44)
[2024-03-24] MEDS: LANTUS PER UNIT CHARGE SC ONE ×3 (03:14→21:10)
--- OUTSIDE RECORDS SUMMARY | 2024-03-24 04:52 | External Medical Summary | Summary of Care ---
Author Name Unknown Organization [facility] Address [address] [place] [address] Phone [phone] Care Team Providers Care Java Integration Developer Name Role Phone Sylvia Cook MD Primary Care Provider [phone] Reason for Visit * Reason Comments Medication Refill Encounter Details Date Type Department Care Team (Late st Contact Info) Description 02/10/2024 Refill Family Practice [facility] [address] [place] [id number] Sylvia Cook MD [address] [place] [id number] HTN, goal below 140/90 Allergies Active Allergy Reactions Criticality Noted Date Comments Lisinopril 12/28/2013 Elevated potassium documented as of this encounter (statuses as of 02/11/2024) Medications Medication Sig Dispensed Refills Start Date End Date Status OneTouch Ultra Blue In Vitro Strip (Glucose Blood)Indications :Type 1 diabetes mellitus with hemoglobin A1c goal of 7.0%-8.0% ([facility]) TEST 7 TO 8 TIMES A DAY TO PREVENT HYPOGLYCEMIA 200 Strip 11 1 Active Baqsimi One Pack 3 MG/DOSE Nasal Powder (Glucagon) Administer 3 mg into nostril as needed for Hypoglycemia (low sugar). 3 Each 1 1 Active Insulin Glargine Solostar 100 UNIT/ML Subcutaneous Solution Pen-injector Inject up to 30 units subcutaneously daily in case of pump failure 15 mL 2 3 Active Insulin Glargine Solostar 100 UNIT/ML Subcutaneous Solution Pen-injector 30 unit (0.3 mL) subcutaneously daily up to 30 units daily in case of pump failure 15 mL 2 3 Active Omnipod 5 G6 Intro (Gen 5) Kit CHANGE POD EVERY 3 DAYS 1 Kit 3 Active Additional Information Patient not taking.Reported on 06/29/2023 Omeprazole 20 MG Oral Capsule Delayed Release (PriLOSEC)Indicat ions:Reflux esophagitis TAKE ONE CAPSULE BY MOUTH EVERY DAY IN THE MORNING 100 Capsule 1 3 07/06/20 24 Active Clopidogrel Bisulfate 75 MG Oral Tablet (pLAVix)Indicatio ns:Atherosclerosi s of [place] coronary artery of [place] heart without angina pectoris TAKE ONE TABLET BY MOUTH EVERY MORNING 100 Tablet 1 3 07/06/20 24 Active Atorvastatin Calcium 40 MG Oral Tablet (Lipitor)Indicati ons:Atheroscleros is of [place] coronary artery without angina pectoris TAKE ONE TABLET BY MOUTH EVERY DAY 100 Tablet 1 3 07/30/20 24 Active Tamsulosin HCl 0.4 MG Oral Capsule (Flomax) TAKE ONE CAPSULE BY MOUTH EVERY DAY IN THE MORNING 100 Capsule 3 4 Active Insulin Aspart 100 UNIT/ML Injection Solution (NovoLOG) use 66 unit (0.66 mL) subcutaneously once, Max Daily Dose: 66; To be used in his pump 60 mL 3 4 Active Omnipod 5 G6 Pods (Gen 5) change pod every two days 45 Each 2 4 Active Neomycin-Polymyxi n-HC 3.5-57682-1 Otic Solution Administer 4 Drops into affected ears in the morning and 4 Drops at noon and 4 Drops before bedtime for 10 days 10 mL 1 4 Active Metoprolol Succinate ER 100 MG Oral Tablet Extended Release 24 Hour (toPROL XL)Indications:HT N, goal below 140/90 TAKE ONE TABLET BY MOUTH IN THE MORNING 90 Tablet 3 4 Active Metoprolol Succinate ER 100 MG Oral Tablet Extended Release 24 Hour (toPROL XL)Indications:HT N, goal below 140/90 TAKE ONE TABLET BY MOUTH IN THE MORNING 90 Tablet 3 3 02/10/20 24 Discontinu ed(Refill) documented as of this encounter (statuses as of 02/11/2024) Active Problems Problem Noted Date Diagnosed Date Overweight (BMI 25.0-29.9) 03/02/2023 BPH with obstruction/lower urinary tract symptom s 11/27/2021 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 Type 1 diabetes mellitus wit h hemoglobin A1c goal of less than 7.0% 07/12/2009 Overview: Per Diabetes Taxonomy. 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 Project # [id number], LITHOGRAPH PRESS OPERATOR: Umberto Michel MD. CRC: ISAAC Arguelles. SUMMARY: To test the hypothesis that Evacetrapib 130 mg, in comparison to placebo, reduces the risk of major adverse coronary events in high-risk vascular disease patients. CONTACTS: During normal business hours, contact study staff at ; after hours Watch Engineer via the [facility] [place] [place] hospital tarring machine operator [phone]. 24-hour Global Study Helpline: [phone]. Lipid levels should not be ordered/obtained while this subject is in the Accelerate study. Lipids are being managed in a blinded fashion. If lipid levels are inadvertently obtained, it is important that test results are NOT provided to the patient, study doctor, sample coordinator, or other study team members. Restricted meds while in the study: 1) niacin > 250 mg, 2) gemfibrozil with a potent [id number]. DM type 2 causing vascular disease 04/30/2012 11/10/2014 DM type 2 causing renal disease 04/30/2012 11/10/2014 DM type 2 causing eye disease 04/30/2012 11/10/2014 DM type 2, not at goal 04/30/201206/08 HTN, GOAL BELOW 130/80 10/10/200905/06 Overview: Per HTN Taxonomy. Type 1 diabetes mellitus wit h hemoglobin A1c goal of 7.0%-8.0% 10/03/2009 01/02/2021 Overview: ICD-10 update of inactive term Benign neoplasm of colon 02/22/200706/2019 Overview: hyperplastic polyp--repeat 10 years Examination of participant in clinical trial 6 12/28/2009 Overview: Renamed Per Clinical Trials Billing Project. COSTAR II: COBALT CHROMIUM STENT WITH ANTIPROLIFERATIVE FOR RESTENOSIS II TRIAL FANY # [id number] PI: Addi Pierce MD SC: Jacinda Estes RN, BSN Costar II Clinical Trial*[id number] 12/26/2005 02/05/2011 Overview: Renamed Per Clinical Trials Billing Project. COSTAR II: COBALT CHROMIUM STENT WITH ANTIPROLIFERATIVE FOR RESTENOSIS II TRIAL FANY # [id number] PI: Addi Pierce MD SC: Jacinda Estes RN, BSN Mixed dyslipidemia 03/07/2004 9 Overview: Per Lipid Taxonomy. HTN, goal below 140/90 07/07/200210/10 Overview: Per HTN Taxonomy. Nocturia 01/06/2002 07/28/2017 Type 1 diabetes mellitus wit h hemoglobin A1c goal of less than 7.0% 11/18/2000 07/12/2009 Overview: Per Diabetes Taxonomy. ICD-10 update of inactive term IMPOTENCE, ORGANIC ORIGN CAD (coronary artery disease) 07/28/2017 documented as of this encounter (statuses as of 02/11/2024) Immunizations Name Administration Dates Next Due H1N1 2009 Influenza, IM 10/02/2009 Pneumococcal Conjugate Vacc, 13 Valent (Prevnar) 07/03/2015 Pneumococcal Polysaccharide PPV23 (Pneumovax) 06/14/2007 Seasonal Influenza, Quadriva lent, No Preserve, IM 07/03/2015 Seasonal Influenza, Split, I IV3, With Preserve, Inj 05/16/2014,06/08/2013,09/06/2012,08/15,06/11/2010,07/16/2009,07/18/2008 ,06/14/2007 TD, Preservative Free 07/18/2008 TDAP (age 10 and older)(Boostrix) 06/08/2013 Varicella Zoster Vaccine (Adult) 11/20/2008 documented as of this encounter Social History Tobacco Use Types Packs/Day Years Used Date Smoking Tobacco: Never Smokeless Tobacco: Former Chew Quit: 04/30/1990 Alcohol Use Standard Drinks/Week Comments Yes 0 (1 standard drink = 0.6 oz pur e alcohol) AUDIT-C Answer Date Recorded Frequency of Alcohol Consumption Monthly or less 04/05/2019 Average Number of Drinks Not on file 019 Frequency of Binge Drinking Not on file 03/15 PHQ-2 Answer Date Recorded PHQ Adult Total Score 0 09/24/2022 Hunger Vital Sign Answer Date Recorded Within the past 12 months, y ou worried that your food would run out before you got the money to buy more. Never true 02/09/20 24 Within the past 12 months, t he food you bought just didn't last and you didn't have money to get more. Never true 02/09/2024 Sex and Gender Information Value Date Recorded Sex Assigned at Male 09/24/2022 10:27 AM EST Gender Identity Male 09/24/2022 10:27 AM EST Sexual Orientation Straight 09/24/2022 10 :27 AM EST Job Start Date Occupation Industry Not on file Not on file Not on file documented as of this encounter Miscellaneous Notes * Telephone Encounter - Aida Steven [facility] - 02/11/2024 9:31 AM EDT Signed Prescriptions: Disp Refills Metoprolol Succinate ER 100 MG Oral Tablet*90 Tab*3 Sig: TAKE ONE TABLET BY MOUTH IN THE MORNINGAuthorizing Provider: SYLVIA COOK User: AIDA STEVEN Electronically signed by Aida Steven [facility] at 02/11/2024 9:31 AM EDT documented in this encounter Plan of Treatment Scheduled Procedures Name Priority Associated Diagnoses Date/Ti me COLONOSCOPY CA SCRN NOT HI RSK Recall Screening for colon cancer Health Maintenance Due Date Last Done Comments DXA Scan 1942 Zoster Vaccines (2 of 3) 01/15/2009 11/20/2008 Colonoscopy 11/09/2019 11/09/2014, 02/12/2007 Diabetic Foot Exam 09/01/2020 09/01/2019, 1 09/28/2017, 07/28/2017, Additional history exists COVID-19 Vaccine (1 - 2022- season) 2023 DTaP,Tdap,and Td Vaccines (2 - Td or Tdap) 06/08/2023 06/08/2013, 07/18/2008 Depression Screening 09/24/2023 09/24/2022 HbA1c 12/29/2023 06/29/2023, 12, 04/29/2022, Additional history exists Influenza Vaccine (FLU shot) (Season Ended) 2024 07/03/2015, 05/16/2014, 06/08/2013, Additional history exists Albumin/Creatinine Ratio 06/29/2024 023, 11/07/2021, 12/31/2020, Additional history exists GFR 06/29/2024 06/29/2023, 08/15, 11/07/2021, Additional history exists Diabetic Eye Exam 11/18/2024 11/19/2023, , 05/21/2023, Additional history exists RETIRED - COLONOSCOPY-EVERY 5 YRS AGES 18-100 Discontinued 11/09/2014, 02/12/2007 Pneumococcal Vaccine: 65+ Years Completed 07/03/2015, 06/14/2007, 07/07/2002 GARDASIL-HPV IMMUNIZATION SERIES Aged Out No longer eligible based on patient's age to complete this topic Hepatitis B Aged Out No longer eligi ble based on patient's age to complete this topic MENINGOCOCCAL (MENACTRA/MENVEO) Aged Out No longer eligible based on patient's age to complete this topic documented as of this encounter Medical Devices Not on filedocumented as of this encounter Visit Diagnoses Diagnosis HTN, goal below 140/90 Unspecified essential hypertension documented in this encounter Advance Directives Documents on File Type Date Recorded Patient [place] Expl anation Advance Directives and Living Will 10/26/2019 ADVANCE DIRECTIVE / LIVING WILL Care Teams Java Integration Developer Relationship Specialty Start Date End Date Sylvia Cook MD [address] [place] [id number] PCP - General Family Medicine 12/31/20 documented as of this encounter
--- OUTSIDE RECORDS SUMMARY | 2024-03-24 04:53 | External Medical Summary | Summary of Care ---
Author Name Unknown Organization [facility] Address [address] [place] [address] Phone [phone] Care Team Providers Care Roller Gold Leaf Name Role Phone Edson Landon MD Primary Care Provider [phone] Reason for Visit * Reason Onset Date Comments Health Maintenance 12/18/2023 Encounter Details Date Type Department Care Team (Late st Contact Info) Description 12/18/2023 Telephone Family Practice [facility] [address] [place] [address] Edson Landon MD [address] [place] [id number] Health Maintenance Allergies Active Allergy Reactions Criticality Noted Date Comments Lisinopril 12/28/2013 Elevated potassium documented as of this encounter (statuses as of 12/18/2023) Medications Medication Sig Dispensed Refills Start Date End Date Status OneTouch Ultra Blue In Vitro Strip (Glucose Blood)Indications: Type 1 diabetes mellitus with hemoglobin A1c goal of 7.0%-8.0% ([facility]) TEST 7 TO 8 TIMES A DAY TO PREVENT HYPOGLYCEMIA 200 Strip 11 06/11/2021 Active Baqsimi One Pack 3 MG/DOSE Nasal Powder (Glucagon) Administer 3 mg into nostril as needed for Hypoglycemia (low sugar). 3 Each 1 06/13/2021 Active Insulin Glargine Solostar 100 UNIT/ML Subcutaneous Solution Pen-injector Inject up to 30 units subcutaneously daily in case of pump failure 15 mL 2 01/01/2023 Active Insulin Glargine Solostar 100 UNIT/ML Subcutaneous Solution Pen-injector 30 unit (0.3 mL) subcutaneously daily up to 30 units daily in case of pump failure 15 mL 2 01/03/2023 Active Additional Information Patient not taking.Reported on 06/29/2023 Metoprolol Succinate ER 100 MG Oral Tablet Extended Release 24 Hour (toPROL XL)Indications:HTN , goal below 140/90 TAKE ONE TABLET BY MOUTH IN THE MORNING 90 Tablet 3 11/18/2022 4 Active Omeprazole 20 MG Oral Capsule Delayed Release (PriLOSEC)Indicati ons:Reflux esophagitis TAKE ONE CAPSULE BY MOUTH EVERY DAY IN THE MORNING 100 Capsule 1 07/07/2023 4 Active Clopidogrel Bisulfate 75 MG Oral Tablet (pLAVix)Indication s:Atherosclerosis of [place] coronary artery of [place] heart without angina pectoris TAKE ONE TABLET BY MOUTH EVERY MORNING 100 Tablet 1 07/07/2023 4 Active Atorvastatin Calcium 40 MG Oral Tablet (Lipitor)Indicatio ns:Atherosclerosis of [place] coronary artery without angina pectoris TAKE ONE TABLET BY MOUTH EVERY DAY 100 Tablet 1 07/31/2023 4 Active Tamsulosin HCl 0.4 MG Oral Capsule (Flomax) TAKE ONE CAPSULE BY MOUTH EVERY DAY IN THE MORNING 100 Capsule 3 11/13/2023 Active Insulin Aspart 100 UNIT/ML Injection Solution (NovoLOG) use 66 unit (0.66 mL) subcutaneously once, Max Daily Dose: 66; To be used in his pump 60 mL 3 11/13/2023 Active Omnipod 5 G6 Pods (Gen 5) change pod every two days 45 Each 2 11/13/2023 Active documented as of this encounter (statuses as of 12/18/2023) Active Problems Problem Noted Date Diagnosed Date [...] ICD-10 update of inactive term Atherosclerosis of [place] co ronary artery of [place] heart without angina pectoris 12/26/2005 History of TIA (transient ischemic attack) 11/13 documented as of this encounter (statuses as of 12/18/2023) Resolved Problems Problem Noted Date Diagnosed Date [...] External hemorrhoid, thrombosed 11/01/2014 07/28/2017 Accelerate Clinical Trial*[id number] 03/30/2013 08/07/2015 Overview: ACCELERATE STUDY. Project # [id number], ALGEBRAIST: Umberto Michel MD. CRC: ISAAC Arguelles. SUMMARY: To test the hypothesis that Evacetrapib 130 mg, in comparison to placebo, reduces the risk of major adverse coronary events in high-risk vascular disease patients. CONTACTS: During normal business hours, contact study staff at ; after hours Crystal Gazer via the [facility] hospital cap lining machine operator [phone]. 24-hour Global Study Helpline: [phone]. Lipid levels should not be ordered/obtained while this subject is in the Accelerate study. Lipids are being managed in a blinded fashion. If lipid levels are inadvertently obtained, it is important that test results are NOT provided to the patient, study doctor, product coordinator, or other study team members. Restricted meds while in the study: 1) niacin > 250 mg, 2) gemfibrozil with a potent [id number]. DM type 2 causing vascular disease 04/30/2012 [...] ANTIPROLIFERATIVE FOR RESTENOSIS II TRIAL FANY # [id number] PI: Addi Pierce MD SC: Jacinda Estes RN, BSN Costar II Clinical Trial*[id number] 12/26/2005 02/05/2011 Overview: Renamed Per Clinical Trials Billing Project. COSTAR II: COBALT CHROMIUM STENT WITH ANTIPROLIFERATIVE FOR RESTENOSIS II TRIAL FANY # [id number] PI: Addi Pierce MD SC: Jacinda Estes [...] as of this encounter (statuses as of 12/18/2023) Immunizations Name Administration Dates Next Due H1N1 [...] the money to buy more. Never true 09/24/19 23 Within the past 12 months, t he food you bought just didn't last and you didn't have money to get more. Never true 09/24/2022 Sex and Gender Information Value Date Recorded Sex Assigned at Male 09/24/2022 10:27 AM EST Gender Identity Male 09/24/2022 10:27 AM EST Sexual Orientation Straight 09/24/2022 10 :27 AM EST Job Start Date Occupation Industry Not on file Not on file Not on file documented as of this encounter Miscellaneous Notes * Telephone Encounter - Silvia Velásquez PACO - 12/18/2023 10:50 AM EDT Care Gaps Comprehensive Care Outreach Last Office/Telemedicine Visit: 11/16/2023 (in office), Visit date not found (telemedicine) Next Office Visit: Visit date not found Hemoglobin AIC Results: Lab Results Component Value Date/Time HEMOGLOBIN A1C - [facility] 6.6 (H) 06/29/2023 09:39 AM HEMOGLOBIN A1C - [facility] 6.3 (H) 09/02/2022 02:34 PM HEMOGLOBIN A1C - [facility] 6.8 (H) 04/29/2022 08:50 AM HEMOGLOBIN A1C - [facility] 6.9 (H) 09/10/2020 03:05 PM HEMOGLOBIN A1C - [facility] 7.9 (H) 10/04/2019 10:33 AM HEMOGLOBIN A1C - [facility] 7.8 (H) 04/06/2019 07:39 AM BP Readings from Last 1 Encounters: 11/16/23 164/70 Reviewed Health Maintenance below: Health Maintenance Topic Date Due DXA Scan Never done Zoster Vaccines (2 of 3) 01/15/2009 COLONOSCOPY-EVERY 5 YRS AGES 18-100 11/09/2019 Diabetic Foot Exam 09/01/2020 COVID-19 Vaccine ( - season) Never done DTaP,Tdap,and Td Vaccines (2 - Td or Tdap) 06/08/2023 Depression Screening 09/24/2023 HbA1c 12/29/2023 Influenza Vaccine (FLU shot) (Season Ended) 2024 Albumin/Creatinine Ratio 06/29/2024 GFR 06/29/2024 Ov sept Labs Colon defer to pcp for age Care Gap Outreach Action Taken: Unable to reach no answer documented in this encounter Plan of Treatment Scheduled Procedures Name Priority Associated Diagnoses Date/Ti me COLONOSCOPY CA SCRN NOT HI RSK Recall Screening for colon cancer Health Maintenance Due Date Last Done Comments DXA Scan 1940 Zoster Vaccines (2 of 3) 01/15/2009 11/20/2008 COLONOSCOPY-EVERY 5 YRS AGES 18-100 11/09/2019 11/09/2014, 02/12/2007 Diabetic Foot Exam 09/01/2020 09/01/2019, 1 09/28/2017, 07/28/2017, Additional history exists COVID-19 Vaccine ( - season) 2023 DTaP,Tdap,and Td Vaccines (2 - Td or Tdap) 06/08/2023 06/08/2013, 07/18/2008 Depression Screening 09/24/2023 09/24/2022 HbA1c 12/29/2023 06/29/2023, 08/15, 04/29/2022, Additional history exists Influenza Vaccine (FLU shot) (Season Ended) 2024 07/03/2015, 05/16/2014, 06/08/2013, Additional history exists Albumin/Creatinine Ratio 06/29/2024 023, 11/07/2021, 12/31/2020, Additional history exists GFR 06/29/2024 06/29/2023, 08/15, 11/07/2021, Additional history exists Diabetic Eye Exam 11/18/2024 11/19/2023, , 05/21/2023, Additional history exists Pneumococcal Vaccine: 65+ Years Completed 07/03/2015, 06/14/2007, [...] Not on filedocumented as of this encounter Advance Directives Documents on File Type Date Recorded Patient Funeral Assistant Expl anation Advance Directives and Living Will 10/26/2019 ADVANCE DIRECTIVE / LIVING WILL Care Teams Roller Gold Leaf Relationship Specialty Start Date End Date Edson Landon MD [address] [place] [address] PCP - General Family Medicine 12/31/20 documented as of this encounter
--- OUTSIDE RECORDS SUMMARY | 2024-03-24 04:53 | External Medical Summary | Summary of Care ---
Author Name Unknown Organization [facility] Address [address] [place] [address] Phone [phone] Care Team Providers Care Transportation Clerk Name Role Phone Edson Landon MD Primary Care Provider [phone] Reason for Visit * Reason Comments Ear Problem Pt here with wh o states hearing has decreased over the past few weeks and this morning he had discharge out R ear Encounter Details Date Type Department Care Team (Late st Contact Info) Description 02/09/2024 10:00 AM EDT Office Visit Family Practice [facility] [address] [place] [address] Edson Lanodn MD [address] [place] [address] Ceruminosis, right* Allergies Active Allergy Reactions Criticality Noted Date Comments Lisinopril 12/28/2013 Elevated potassium documented as of this encounter (statuses as of 02/09/2024) Medications Medication Sig Dispensed Refills Start Date End Date Status OneTouch Ultra Blue In Vitro Strip (Glucose Blood)Indications: Type 1 diabetes mellitus with hemoglobin A1c goal of 7.0%-8.0% ([facility]) TEST 7 TO 8 TIMES [...] pump failure 15 mL 2 01/03/2023 Active Omnipod 5 G6 Intro (Gen 5) Kit CHANGE POD EVERY 3 DAYS 1 Kit 12/01/2022 Active Additional Information Patient not taking.Reported on 06/29/2023 Metoprolol Succinate ER 100 MG Oral Tablet Extended Release 24 Hour (toPROL XL)Indications:HTN , goal below 140/90 TAKE ONE TABLET BY MOUTH IN THE MORNING 90 Tablet 3 11/18/2022 4 Active NovoLOG 100 UNIT/ML Injection Solution TO BE USED IN INSULIN PUMP; MAX DAILY DOSE OF 66 UNITS 60 mL 3 09/09/2022 Active Omeprazole 20 MG Oral Capsule Delayed Release (PriLOSEC)Indicati ons:Reflux esophagitis TAKE ONE CAPSULE BY MOUTH EVERY DAY IN THE MORNING 100 Capsule 1 07/07/2023 4 Active Clopidogrel Bisulfate 75 MG Oral Tablet (pLAVix)Indication s:Atherosclerosis of [place] coronary artery of [place] heart without angina pectoris TAKE ONE TABLET BY MOUTH EVERY MORNING 100 Tablet 1 07/07/2023 4 Active Atorvastatin Calcium 40 MG Oral Tablet (Lipitor)Indicatio ns:Atherosclerosis of [place] coronary artery without angina pectoris TAKE ONE [...] two days 45 Each 2 11/13/2023 Active Neomycin-Polymyxin -HC 3.5-61766-7 Otic Solution Administer 4 Drops into affected ears in the morning and 4 Drops at noon and 4 Drops before bedtime for 10 days 10 mL 1 02/09/2024 Active documented as of this encounter (statuses as of 02/09/2024) Active Problems Problem Noted Date Diagnosed Date [...] ICD-10 update of inactive term Atherosclerosis of [place] co ronary artery of [place] heart without angina pectoris 12/26/2005 History of TIA (transient ischemic attack) 11/13 documented as of this encounter (statuses as of 02/09/2024) Resolved Problems Problem Noted Date Diagnosed Date [...] External hemorrhoid, thrombosed 11/01/2014 07/28/2017 Accelerate Clinical Trial*[id number] 03/30/2013 08/07/2015 Overview: ACCELERATE STUDY. Project # [id number], STRAIGHTENING PRESS OPERATOR: Umberto Michel MD. CRC: ISAAC Arguelles. SUMMARY: To test the hypothesis that Evacetrapib 130 mg, in comparison to placebo, reduces the risk of major adverse coronary events in high-risk vascular disease patients. CONTACTS: During normal business hours, contact study staff at ; after hours Admiralty Lawyer via the [facility] hospital tester operator [phone]. 24-hour Global Study Helpline: [phone]. Lipid levels should not be ordered/obtained while this subject is in the Accelerate study. Lipids are being managed in a blinded fashion. If lipid levels are inadvertently obtained, it is important that test results are NOT provided to the patient, study doctor, meeting coordinator, or other study team members. Restricted meds while in the study: 1) niacin > 250 mg, 2) gemfibrozil with a potent [id number]. DM type 2 causing vascular disease 04/30/2012 [...] ANTIPROLIFERATIVE FOR RESTENOSIS II TRIAL FANY # [id number] PI: Addi Pierce MD SC: Jacinda Estes RN, BSN Costar II Clinical Trial*[id number] 12/26/2005 02/05/2011 Overview: Renamed Per Clinical Trials Billing Project. COSTAR II: COBALT CHROMIUM STENT WITH ANTIPROLIFERATIVE FOR RESTENOSIS II TRIAL FANY # [id number] PI: Addi Pierce MD SC: Jacinda Estes [...] as of this encounter (statuses as of 02/09/2024) Immunizations Name Administration Dates Next Due H1N1 [...] on file documented as of this encounter Last Filed Vital Signs Vital Sign Reading Time Taken Comments Blood Pressure 114/58 02/09/2024 9:57 AM EDT Pulse 65 02/09/2024 9:57 AM EDT Temperature 36.6 C (97.8 F) 02/09/2024 9:57 AM ED T Respiratory Rate 18 02/09/2024 9:57 AM EDT Oxygen Saturation 97% 02/09/2024 9:57 AM EDT Inhaled Oxygen Concentration - - Weight 81.2 kg (179 lb) 02/09/2024 9:57 AM EDT Height 167.6 cm (5' 6") 02/09/2024 9:57 AM EDT Body Mass Index 28.89 02/09/2024 9:57 AM EDT documented in this encounter Progress Notes * Edson Landon MD - 02/09/2024 10:13 AM EDT SUBJECTIVE: Nhan Hernadez is a 84 year old male. Chief Complaint Patient presents with Ear Problem Pt here with who states hearing has decreased over the past few weeks and this morning he had discharge out R ear HPI: Hearing loss right ear x 3 weeks. No pain. Hx of ceruminosis in the past. Patient Active Problem List Diagnosis History of TIA (transient ischemic attack) Atherosclerosis of [place] coronary artery of [place] heart without angina pectoris Type 1 diabetes mellitus with hemoglobin A1c goal of less than 7.0% (HCC) Dyslipidemia Gastroesophageal reflux disease with esophagitis Type 1 diabetes mellitus with diabetic neuropathy (HCC) HTN, goal below 130/80 Neurologic gait dysfunction MCI (mild cognitive impairment) BPH with obstruction/lower urinary tract symptoms Overweight (BMI 25.0-29.9) Current Outpatient Medications Medication Sig Dispense Refill Baqsimi One Pack 3 MG/DOSE Nasal Powder (Glucagon) Administer 3 mg into nostril as needed for Hypoglycemia (low sugar). 3 Each 1 Insulin Glargine Solostar 100 UNIT/ML Subcutaneous Solution Pen-injector Inject up to 30 units subcutaneously daily in case of pump failure 15 mL 2 Insulin Glargine Solostar 100 UNIT/ML Subcutaneous Solution Pen-injector 30 unit (0.3 mL) subcutaneously daily up to 30 units daily in case of pump failure 15 mL 2 Metoprolol Succinate ER 100 MG Oral Tablet Extended Release 24 Hour (toPROL XL) TAKE ONE TABLET BY MOUTH IN THE MORNING 90 Tablet 3 Omeprazole 20 MG Oral Capsule Delayed Release (PriLOSEC) TAKE ONE CAPSULE BY MOUTH EVERY DAY IN THEMORNING 100 Capsule 1 Clopidogrel Bisulfate 75 MG Oral Tablet (pLAVix) TAKE ONE TABLET BY MOUTH EVERY MORNING 100 Tablet 1 Atorvastatin Calcium 40 MG Oral Tablet (Lipitor) TAKE ONE TABLET BY MOUTH EVERY DAY 100 Tablet 1 Tamsulosin HCl 0.4 MG Oral Capsule (Flomax) TAKE ONE CAPSULE BY MOUTH EVERY DAY IN THE MORNING 100 Capsule 3 Insulin Aspart 100 UNIT/ML Injection Solution (NovoLOG) use 66 unit (0.66 mL) subcutaneously once, Max Daily Dose: 66; To be used in his pump 60 mL 3 [id number]-[id number]-LE 3.5-48117-8 Otic Solution Administer 4 Drops into ears in the morning and 4 Drops at noon and 4 Drops before bedtime. To affected ear, for 10 days.. 10 mL 1 OneTouch Ultra Blue In Vitro Strip (Glucose Blood) TEST 7 TO 8 TIMES A DAY TO PREVENT HYPOGLYCEMIA 200 Strip 11 Omnipod 5 G6 Intro (Gen 5) Kit CHANGE POD EVERY 3 DAYS (Patient not taking: Reported on 06/29/2023)1 Kit 0 NovoLOG 100 UNIT/ML Injection Solution TO BE USED IN INSULIN PUMP; MAX DAILY DOSE OF 66 UNITS 60 mL3 Omnipod 5 G6 Pods (Gen 5) change pod every two days 45 Each 2 No current facility-administered medications for this visit. Allergy: Review of patient's allergies indicates: Allergen Reactions Lisinopril Elevated potassium OBJECTIVE: BP 114/58 | Pulse 65 | Temp 36.6 C (97.8 F) (Tympanic) | Resp 18 | Ht 1.676 m (5' 6") | Wt 81.2kg (179 lb) | SpO2 97% | BMI 28.89 kg/m | BSA 1.94 m Gen: nad Ears: right canal obstructed by cerumen; TM healthy appearing s/p irrigation today After risks and benefits described right ear(s) flushed with warm water and cerumen removed. Patient tolerated procedure well. To call if any pain in ears or further problems ASSESSMENT AND PLAN: (H61.21) Ceruminosis, right (primary encounter diagnosis) Plan: REMOVAL IMPACTED CERUMEN IRRIGATION/LAVAGE, UNILAT Follow up as needed. No other complaints were offered at this time. Edson Landon MD documented in this encounter Nursing Notes * Mandi Whitman LPN - 02/09/2024 9:57 AM EDT The patient has been properly identified by confirmation of name and date of . Chief Complaint Patient presents with Ear Problem Pt here with who states hearing has decreased over the past few weeks and this morning he had discharge out R ear documented in this encounter Plan of Treatment Scheduled Orders Name Type Priority Associated Diagnoses Orde r Schedule REMOVAL IMPACTED CERUMEN IRRIGATION/LAVAGE, UNILAT Procedures Routine Ceruminosis, right Ordered: 02/09/2024 Scheduled Procedures Name Priority Associated Diagnoses Date/Ti [...] Depression Screening 09/24/2023 09/24/2022 HbA1c 12/29/2023 06/29/2023, 12/, 04/29/2022, Additional history exists Influenza Vaccine (FLU [...] as of this encounter Visit Diagnoses Diagnosis Ceruminosis, right- Primary documented in this encounter Advance Directives Documents on File Type Date Recorded Patient Top Dyeing Machine Tender Expl anation Advance Directives and Living Will 10/26/2019 ADVANCE DIRECTIVE / LIVING WILL Care Teams Transportation Clerk Relationship Specialty Start Date End Date Edson Landon MD [address] [address] PCP - General Family Medicine 12/31/20 documented as of this encounter
[2024-03-24] MEDS: INSULIN ASPART PER UNIT CHARGE SC SCH ×2 (06:13→20:55)
[2024-03-24 07:25] LABS: Hematocrit (blood only) 39.9 % (42.0-52.0); Hemoglobin 13.2 g/dl (14.0-18.0); Mean Corpuscular Hemoglobin 31.1 pg (25.0-34.0); Mean Corpuscular Hgb Conc 33.1 g/dL (32.0-36.0); Mean Corpuscular Volume 94.1 fL (80.0-100.0); Mean Platelet Volume 10.8 fL (9.4-12.4); Platelet Count 149 K/uL (130-400); RDW Coefficient of Variation 12.8 % (11.5-14.5); RDW Standard Deviation 43.9 fL (36.4-46.3); Red Blood Count 4.24 M/uL (4.70-6.10); White Blood Count 14.62 K/ul (4.8-10.8)
[2024-03-24 07:46] LABS: Bilirubin,Total 2.1 mg/dl (0.2-1.0)
[2024-03-24 07:47] LABS: Albumin Globulin Ratio 1.2 (0.9-2); Albumin Level 3.3 gm/dl (3.4-5.0); BUN Creatinine Ratio 14.4 (10-20); Creatinine Clr Calc Pharmacy 53.5 ml/min; Est GFR (African American) 77.1 ml/min; Est GFR (Non-African American) 66.6 ml/min; Globulin 2.8 gm/dl (2.5-4.0); Potassium 4.1 mmol/L (3.5-5.1); Total Protein 6.1 gm/dl (6.0-8.3)
[2024-03-24 08:09] LABS: Estimated Average Glucose 134 mg/dl; Hemoglobin A1C 6.3 % (4.5-5.6)
[2024-03-24 08:10] LABS: Basophils # (auto) 0.02 K/uL (0.00-0.20); Basophils % (auto) 0.1 %; Eosinophils # (auto) 0.05 K/uL (0.00-0.50); Eosinophils % (auto) 0.3 %; Immature Granulocytes # (auto) 0.09 K/uL (0.01-0.20); Immature Granulocytes % (auto) 0.6 %; Lymphocytes % (auto) 5.5 %; Monocytes % (auto) 4.1 %; Neutrophils # (auto) 13.06 K/uL (1.40-6.50); Neutrophils % (auto) 89.4 %
[2024-03-24] MEDS: METOPROLOL SUCC 50MG EXT REL TAB PO SCH (08:26)
[2024-03-24] MEDS: TAMSULOSIN HCL 0.4 MG CAP PO SCH (08:26)
[2024-03-24] MEDS: PANTOprazole 40 MG TAB PO SCH (08:27)
--- NOTE | 2024-03-24 10:13 | Pharmacy Report ---
Pharmacy Glycemic Short Note 2 - Date of Service March 24, 2024 - Glycemic Short BSG Results (Last 24 hours): 03/23/24 03/23/24 03/23/24 12:00 12:19 16:59 Glucose 96 POC Glucose 90 POC Glucose (other) 95 03/23/24 03/23/24 03/23/24 23:09 23:12 23:37 Glucose POC Glucose 55 L* 54 L* 103 H POC Glucose (other) 03/24/24 03/24/24 03/24/24 00:32 02:01 03:02 Glucose POC Glucose 82 83 101 H POC Glucose (other) 03/24/24 03/24/24 05:57 06:55 Glucose 187 H POC Glucose 160 H POC Glucose (other) OUTPATIENT ANTIDIABETIC REGIMEN: * Per endo visit November 2023 - uses Omnipod pump * Basal ~20 units/day * Correction factor: 15-20 mg/dL/unit * Carb ratio: 8 g CHO/unit * Total daily dose ~38-39 units * HbA1c 6.3% on 03/24/24 ASSESSMENT: * 84 yo M with type 1 diabetes admitted w appendicitis. Non-surgical management planned for now. Patient remains NPO at this time. Receiving IV antibiotic. On dextrose-containing infusion of D5NS @ 60 mL/hr * No previous inpatient hospital stays to review * Hypoglycemia noted yesterday PM. Omnipod pump was discontinued. Low dose basal administered overnight. Anticipate possible rebound in BSG's as Lantus will take a longer time to come on-board and discontinuation of Omnipod pump will have more of an immediate effect * Basal plan - will reduce home dose by ~25% for NPO status and hypoglycemia yesterday. More aggressive decreases for a patient with type 1 diabetes may cause rebound hyperglycemia * Will initiate Novolog at slightly looser than home regimen parameters, given NPO status and hypoglycemia yesterday PLAN FOR INPATIENT GLYCEMIC CONTROL: * Basal insulin * Lantus 5+10 units SQ x1 this AM * Bolus insulin * NovoLog per scale ACHS or Q6hrs while NPO * Goal Range: Low 110 mg/dL - High 140 mg/dL * Correction Factor: 30 mg/dL/unit * Nutritional / Prandial insulin per carb ratio of 1 unit per 10 grams CHO consumed
--- NOTE | 2024-03-24 10:25 | Surgery Progress Note ---
Date of Service March 24, 2024 Assessment & Plan (1) Acute appendicitis: Plan: VSS , Wbc remain elevated continue conservative treatment with IV antibiotics at this time continue npo for now will discuss case with on-call surgeon and further recommendations will be forthcoming as above. feeling better however states that he has not taken plavix since thursday. I am concerned primarily about the appendicoliths causing early recurrence. discussed risks of surgery ( bleeding/infection/blood clots/injury to another organ etc...). questions answered. they would prefer lap appy now and I agree. will proceed with lap appy later today. Admission and Anticipated Discharge Date Admission Date: March 23, 2024 Subjective pt reports feeling better than yesterday +flatus , abd pain less but still present requesting diet reports that looked at pill container and he has not taken his Plavix since last Thursday Review of Systems Gastrointestinal: + abdominal pain; no nausea and no vomit ing Physical Exam Gastrointestinal (Abdomen): Percussion/Palpation: + abdomen tender (RLQ ), + guarding and abdomen soft Results & Data Vital Signs (Past 12 Hours) Vital Signs Temp Pulse Resp BP Pulse Ox O2 Del Method 03/24/24 07:05 98.1 F 81 18 124/68 94 Room Air PG Care Time/CCT Total # of Minutes Spent Total Time Spent with Patient: Total time spent is greater than 50% in coordination of care (as documented) at patient's floor/unit and/or counseling patient: Coding Level of Care Code 05990 SUB INP/OBS CARE 1/25MIN Diagnoses Acute appendicitis K35.80 Acute appendicitis type: unspecified acute appendicitis type (1) Acute appendicitis Acute appendicitis type: unspecified acute appendicitis type Qualified Code(s): K35.80 - Unspecified acute appendicitis
--- NOTE | 2024-03-24 15:18 | Hospitalist Progress Note ---
Date of Service March 24, 2024 Assessment & Plan (1) Acute appendicitis: (2) Coronary artery disease: (3) DM type 1 (diabetes mellitus, type 1): Plan Patient significantly ill with acute appendicitis. Patient was seen at the bedside with his and surgical team. With new information that he has not taken his Plavix for 5 days may be a candidate for more immediate surgical intervention. Continue n.p.o. Continue antibiotics Continue monitoring glucose and insulin as recommended for primacy protocol. At this time medically maximized for anticipated appendectomy Update from surgical team: Patient will be headed to appendectomy later on today. Routine laboratory studies in a.m. Admission and Anticipated Discharge Date Admission Date: March 23, 2024 Subjective Patient seen early this morning. Still some right lower quadrant tenderness but improved. at bedside. They both confirm that due to the patient's pain and illness he has not taken his Plavix since Thursday. Physical Exam Physical Exam: Constitutional: Alert HEENT: Mucous membranes moist. Lungs: Clear to auscultation, decreased, no wheezes rales or rhonchi CV: S1-S2, regular Abdomen: Soft, right lower quadrant tenderness to deep palpation Extremities: No significant edema Neuro: No focal deficits Psych: Cooperative, normal mood Results & Data Results & Data Vital Signs (Past 12 Hours) Vital Signs Temp Pulse Resp BP Pulse Ox O2 Del Method 03/24/24 15:04 36.3 C L 67 16 122/72 96 Room Air 03/24/24 07:05 36.7 C 81 18 124/68 94 Room Air Diagnostic Findings Reviewed imaging, laboratory and diagnostic studies. Pertinent findings as below. WBCs 14.6, hemoglobin 13.2 Glucose was reviewed (1) Acute appendicitis Acute appendicitis type: unspecified acute appendicitis type Qualified Code(s): K35.80 - Unspecified acute appendicitis (3) DM type 1 (diabetes mellitus, type 1) Diabetes mellitus complication status: with other specified complication Qualified Code(s): E10.69 - Type 1 diabetes mellitus with other specified comp lication
[2024-03-24] MEDS: INSULIN ASPART PER UNIT CHARGE SC ONE (15:27)
[2024-03-24] MEDS ORDERED: INSULIN ASPART PER UNIT CHARGE SC SCH (16:00)
[2024-03-24] MEDS ORDERED: LIDOCAINE 2% 2 ML VIAL/AMP(20MG/ML) INFIL ONE ×2 (16:51→18:58)
[2024-03-24] MEDS ORDERED: ROCURONIUM BROMIDE 10 MG/ML 5 ML VIAL IV ONE ×2 (16:51→18:58)
[2024-03-24] MEDS ORDERED: PROPOFOL IV EMULSION 10 MG/ML 20 ML VIAL IV ONE ×2 (16:51→18:58)
[2024-03-24] MEDS ORDERED: fentaNYL citrate PF 100 MCG/2 ML VIAL ONE (16:52)
[2024-03-24] MEDS: SODIUM CHLORIDE 0.9% 500 ML IV SCH (17:41)
--- NOTE | 2024-03-24 17:45 | Anesthesiology Consultation ---
Date of Service March 24, 2024 Assessment & Plan Chart Review Chart Review: Acceptable Risk for Surgery and Patient NOT seen in Pre Admission Testing Consults Requested none History Surgery Operation Date: 03/24/24 08:30 Proposed Procedures p Laparoscopic Appendectomy - Mehran Eaton DO Height/Weight Height: 5 ft 6 in Weight: 77.1 kg Allergies Allergy/AdvReac Type Severity Reaction Status Date / Time [place] And Derivatives Allergy Severe Swelling Unverified 03/23/24 14:56 of Lip/Tongue/Throat lisinopril Allergy Verified 03/23/24 14:56 Medications Home Medications Medication Instructions Recorded Confirmed Last Taken BD Ultra-Fine Eleanor Pen Needle 32 #400 ea 06/06/19 06/25/23 Unknown gauge x 5/32" (pen needle, diabetic) atorvastatin 40 mg tablet 40 mg PO HS #90 tabs 06/21/19 03/23/24 03/22/24 clopidogrel 75 mg tablet 75 mg PO DAILY 06/21/19 03/23/24 03/23/24 metoprolol succinate 100 mg 100 mg PO DAILY 06/21/19 03/23/24 03/23/24 tablet,extended release 24 hr omeprazole magnesium 20 mg 20 mg PO DAILY 06/21/19 03/23/24 03/23/24 tablet,delayed release blood sugar diagnostic (OneTouch #10 ea 06/23/19 06/25/23 Unknown Ultra Blue Test Strip) tamsulosin 0.4 mg capsule (Flomax) 0.4 mg PO DAILY 12/25/20 03/23/24 03/22/24 glucagon 3 mg/actuation nasal 3 mg intranasal DAILY PRN 05/15/22 03/23/24 Unknown spray (Baqsimi) Hypoglycemia insulin pump cartridge #40 ea 10/11/22 06/25/23 Unknown insulin glargine 100 unit/mL (3 30 unit (0.3 mL) subcut DAILY #15 01/03/23 03/23/24 Unknown mL) subcutaneous pen (Lantus mL Solostar U-100 Insulin) insulin aspart U-100 100 unit/mL 66 unit (0.66 mL) subcut ONCE #60 11/13/23 03/23/24 Unknown subcutaneous solution (Novolog mL U-100 Insulin aspart) insulin pump cart,automated,BT #45 ea 11/13/23 Unknown (Omnipod 5 G6 Pods (Gen 5) subcutaneous cartridge) insulin pump cartridge,automated #1 ea 02/11/24 Unknown dose,BT with controller subcutaneous (Omnipod 5 G6 Intro Kit (Gen 5) subcutaneous cartridge with controller) Active Medications Generic Name Dose Route Start Last Admin Trade Name Freq PRN Reason Stop Dose Admin Atorvastatin Calcium 40 mg 03/23/24 21:00 03/23/24 21:48 Atorvastatin 40 Mg Tab PO 04/22/24 20:59 Not Given HS SID Dextrose 25 - 50 ml 03/23/24 17:22 03/23/24 23:20 Dextrose 50% 50 Ml Syringe IV 04/22/24 17:21 25 ml UD PRN Administration Hypoglycemia Protocol Protocol Piperacillin Sod/Tazobactam 100 mls @ 25 mls/hr 03/23/24 20:00 03/24/24 16:20 Sod 4.5 gm/ Dextrose IV 04/02/24 19:59 Infused Q8H SID Infusion Protocol Acetaminophen 1,000 mg in 100 mls @ 400 mls/hr 03/23/24 18:00 03/24/24 17:42 Ofirmev IV 03/26/24 17:59 Not Given Q8H SID Sodium Chloride 500 mls @ 80 mls/hr 03/24/24 17:30 03/24/24 17:41 Nss IV 04/23/24 17:29 Not Given .Q6H15M SID Metoprolol Succinate 100 mg 03/24/24 09:00 03/24/24 08:26 Metoprolol Succ 50mg Ext Rel Tab PO 04/23/24 08:59 100 mg DAILY SID Administration Morphine Sulfate 2 mg 03/23/24 17:07 03/24/24 15:27 Morphine Sulfate 2 Mg/Ml Carp IV 04/06/24 17:06 2 mg Q4H PRN Administration Severe Pain (Scale 7, 8, 9,10) Pantoprazole Sodium 40 mg 03/24/24 09:00 03/24/24 08:27 Pantoprazole 40 Mg Tab PO 04/23/24 08:59 40 mg DAILY SID Administration Protocol Tamsulosin HCl 0.4 mg 03/24/24 09:00 03/24/24 08:26 Tamsulosin Hcl 0.4 Mg Cap PO 04/23/24 08:59 0.4 mg DAILY SID Administration NPO Date Last Intake of Fluids: 03/23/24 Time Last Intake of Fluids: 23:30 Date Last Intake of Solids: 03/20/24 Time Last Intake of Solids: 23:30 Social History Smoking Status: Never smoker Do You Dip or Chew Tobacco: No Hx Alcohol Use: Yes alcohol intake frequency: holidays/special occasions only Hx Substance Use: No Review of Systems Constitutional: + chills; no fever Respiratory: no dyspnea Cardiovascular: no chest pain Gastrointestinal: + abdominal pain; no nausea and no vomiting Genitourinary (Male): no problem reported Physical Exam Vital Signs Last Vital Signs Temp 36.6 C 03/24/24 17:34 Pulse 77 03/24/24 17:34 Resp 17 03/24/24 17:34 BP 128/62 03/24/24 17:34 Pulse Ox 92 03/24/24 17:34 O2 Del Method Room Air 03/24/24 17:34 Constitutional well developed and well nourished; no acute distress Respiratory normal respiratory effort Gastrointestinal (Abdomen) Inspection/Auscultation: + abdomen distended (mild) Percussion/Palpation: + abdomen tender (RLQ ), + guarding and abdomen soft Testing Laboratory Results 03/24/24 06:55 03/24/24 06:55 Hemoglobin A1c 6.3 % (4.5-5.6) H 03/24/24 06:55 Urine Color Dark Yellow 03/23/24 11:55 Urine Appearance Clear (Clear) 03/23/24 11:55 Urine pH 5.0 (4.5-7.5) 03/23/24 11:55 Ur Specific [place] 1.031 (1.000-1.030) H 03/23/24 11:55 Urine Protein 2+ (Negative) H 03/23/24 11:55 Urine Glucose (UA) Negative (Negative) 03/23/24 11:55 Urine Ketones 1+ (Negative) H 03/23/24 11:55 Urine Nitrite Negative (Negative) 03/23/24 11:55 Ur Leukocyte Esterase Negative (Negative) 03/23/24 11:55 Urine WBC (Auto) 0-5 /hpf (0-5) 03/23/24 11:55 Urine RBC (Auto) 3-5 /hpf (0-2) H 03/23/24 11:55 U Hyaline Cast (Auto) 0-2 /lpf (0-2) 03/23/24 11:55 U Epithel Cells (Auto) 0-2 /hpf (0-2) 03/23/24 11:55 Urine Bacteria (Auto) None Seen (None Seen) 03/23/24 11:55 03/24/24 03/24/24 03/24/24 17:15 14:51 11:49 POC Glucose 260 H 264 H 234 H 03/24/24 05:57 POC Glucose 160 H
[2024-03-24] MEDS ORDERED: DROPERIDOL 5 MG/2 ML VIAL IV PRN (17:51)
[2024-03-24] MEDS ORDERED: ePHEDrine sulfate 50 MG/ML AMP IV PRN (17:51)
[2024-03-24] MEDS ORDERED: fentaNYL citrate PF 100 MCG/2 ML VIAL IV PRN (17:51)
[2024-03-24] MEDS ORDERED: ATROPINE SULFATE 0.1 MG/ML 10ML SYR IV PRN (17:51)
[2024-03-24] MEDS ORDERED: SUCCINYLCHOLINE 100MG/5ML SYR IV ONE (18:58)
[2024-03-24] MEDS ORDERED: PHENYLEPHRINE 100MCG/ML 10ML SYR IV ONE (18:58)
[2024-03-24] MEDS ORDERED: ePHEDrine sulfate 50 MG/5 ML SYR ONE (18:58)
[2024-03-24] MEDS ORDERED: SUGAMMADEX SODIUM 200 MG/2 ML VIAL IV ONE (19:24)
[2024-03-24] MEDS: BUPIVACAINE/EPINEPHRINE 0.5% MPF 1:200,000 30 ML VIAL ONE (19:41)
[2024-03-24] MEDS ORDERED: DexMEDEtomidine HCL IV 100 MCG/ML VIAL IV ONE (19:48)
--- NOTE | 2024-03-24 20:02 | Post Operative Brief Note ---
PG Immediate Post Op with CF Date of Surgery March 24, 2024 Pre & Post Diagnosis Operation Date: 03/24/24 08:30 Pre-Op Diagnosis: acute appendicitis Post-Op Diagnosis: perforated appendix I identified the patient and participated in the time-out.: Yes Procedure Operation Date: 03/24/24 08:30 Actual Procedures p Laparoscopic Appendectomy(Not Applicable) - Mehran Eaton DO Surgeon Mehran Eaton DO Pbx Inspector n/a Estimated Blood Loss 25 Findings Consistent with Post-Op Diagnosis Specimens Specimen Description: A. Appendix Drains Choe Catheter and Daniel-Squires Drain (x1 abdomen)
--- NOTE | 2024-03-24 20:13 | Operative Report ---
PG Post Operative Report Pre & Post Diagnosis Operation Date: 03/24/24 08:30 Pre-Op Diagnosis: acute appendicitis Post-Op Diagnosis: perforated appendix I identified the patient and participated in the time-out.: Yes Procedure Operation Date: 03/24/24 08:30 Actual Procedures p Laparoscopic Appendectomy(Not Applicable) - Mehran Eaton DO Surgeon Mehran Eaton DO Rock Cutter n/a Estimated Blood Loss 25 Findings Consistent with Post-Op Diagnosis Specimens appendix Description of Procedure After informed consent was obtained the patient was taken to the operating room and placed in supine position. After successful intubation a Choe catheter was placed and the left arm was tucked. A Choe catheter was inserted sterilely. I began by making a periumbilical incision with an 11 blade scalpel and carried this down through the soft tissue using electrocautery. The anterior rectus fascia was opened using electrocautery and 2 #0 Vicryl stay sutures were placed. The peritoneum was elevated using hemostats and incised under direct vision using a Metzenbaum scissor. A finger sweep was performed. A 12 mm Martines tr ocar was placed and the abdomen was insufflated to 18 mmHg. A laparoscope was inserted and the abdomen was examined in 360. I noted immediately there was a large amount of inflammation and purulent fluid primarily in the right lower quadrant. A suprapubic 5 mm port and a left lower quadrant 12 mm port were placed under direct vision. The patient was air planed to the left as well as placed in a slight Trendelenburg position. We began by looking in the right lower quadrant. I immediately noted there was a perforation. There was a free- floating appendicolith and a lot of of purulence. The small bowel was stuck to the cecum. I had to peel the small bowel away from the cecum which released a moderate amount of pus. I used the suction motor analyst to immediately suction out the fluid. It took me a little while to identify and understand the anatomy. Eventually I was able to find the appendix base at the cecum. The perforation occurred just distal to this. I was able to free up the cecum and roll it medially. A right angle was used to create a window in the mesentery of the appendix. A DOMO brown cartridge stapler was used to transect the appendix at its base with the cecum. There is too much inflammation to use a stapler on the mesentery of the appendix and therefore I used a harmonic scalpel. The appendix was placed into an Endo Catch bag and removed and sent to pathology. Remainder the time was spent suctioning and irrigating the pelvis as well as right lower quadrant. I was able to identify the terminal ileum. I also removed the appendicolith. After irrigating everything out I placed a 10 flat Daniel-Squires drain from the pelvis up into the right lower quadrant near the site of the abscess cavity. It was brought out through the left lower quadrant trocar site secured to the skin using 0 Vicryl. We thoroughly irrigated the right lower quadrant as well as the pelvis a final time. There was adequate hemostasis. I removed all the trocars. The fascia of the camera port was closed using 0 Vicryl in [id number] fashion. Wounds were all irrigated and closed using 4-0 Monocryl. Marcaine was injected around them for postoperative analgesia and skin glue used as a dressing. The patient was awakened extubated and transferred to recovery in stable condition. I attest to the content of the Intraoperative Record and any orders documented therein. Any exceptions are noted below.
[2024-03-24] MEDS ORDERED: oxyCODONE HCL IR 5 MG TAB (IMMEDIATE RELEASE) PO PRN (20:36)
--- NOTE | 2024-03-24 21:44 | Anesthesiology Progress Note ---
Date of Service March 24, 2024 Anesthesia Post Procedure Vital Signs Vital Signs: Temp Pulse Pulse Pulse Resp BP BP 03/24/24 21:05 36.6 C 80 18 109/66 03/24/24 20:40 36.5 C 80 18 93/53 L 03/24/24 20:25 36.5 C 82 18 115/67 03/24/24 20:15 36.4 C L 83 12 120/60 03/24/24 20:05 88 22 137/66 03/24/24 19:58 36.4 C L 90 18 144/60 H 03/24/24 17:34 36.6 C 77 17 128/62 03/24/24 15:04 36.3 C L 67 16 122/72 03/24/24 07:05 36.7 C 81 18 124/68 03/23/24 22:15 36.7 C 68 18 136/71 Pulse Ox O2 Del Method 03/24/24 21:05 93 Room Air 03/24/24 20:40 92 Room Air 03/24/24 20:25 92 Room Air 03/24/24 20:15 94 Room Air 03/24/24 20:05 94 Room Air 03/24/24 19:58 95 Room Air 03/24/24 17:34 92 Room Air 03/24/24 15:04 96 Room Air 03/24/24 07:05 94 Room Air 03/23/24 22:15 94 Room Air Pain Intensity Abdomen: Pain Intensity: 4 Transfer of Care Handoff Completed per policy Notes Mental Status: alert / awake / arousable Patient Amnestic to Procedure: Yes Nausea / Vomiting: adequately controlled Pain: adequately controlled Airway Patency, RR, SpO2: stable & adequate BP & HR: stable & adequate Hydration State: stable & adequate Anesthetic Complications: no major complications apparent and Pt Satisfied with anesthetic care
[2024-03-25 06:53] LABS: Basophils # (auto) 0.02 K/uL (0.00-0.20); Basophils % (auto) 0.2 %; Eosinophils # (auto) 0.09 K/uL (0.00-0.50); Eosinophils % (auto) 0.8 %; Hemoglobin 11.5 g/dl (14.0-18.0); Immature Granulocytes # (auto) 0.06 K/uL (0.01-0.20); Immature Granulocytes % (auto) 0.5 %; Lymphocytes % (auto) 7.2 %; Mean Corpuscular Hemoglobin 30.4 pg (25.0-34.0); Mean Corpuscular Hgb Conc 32.9 g/dL (32.0-36.0); Mean Corpuscular Volume 92.6 fL (80.0-100.0); Mean Platelet Volume 11.2 fL (9.4-12.4); Monocytes # (auto) 0.49 K/uL (0.11-0.59); Monocytes % (auto) 4.4 %; Neutrophils # (auto) 9.71 K/uL (1.40-6.50); Neutrophils % (auto) 86.9 %; Platelet Count 166 K/uL (130-400); RDW Coefficient of Variation 12.6 % (11.5-14.5); RDW Standard Deviation 42.9 fL (36.4-46.3); Red Blood Count 3.78 M/uL (4.70-6.10); White Blood Count 11.17 K/ul (4.8-10.8)
[2024-03-25 07:19] LABS: Albumin Globulin Ratio 1.1 (0.9-2); Albumin Level 3.1 gm/dl (3.4-5.0); BUN Creatinine Ratio 17.1 (10-20); Bilirubin,Total 0.9 mg/dl (0.2-1.0); Calcium 7.8 mg/dl (8.6-10.3); Est GFR (African American) 76.2 ml/min; Est GFR (Non-African American) 65.8 ml/min; Globulin 2.8 gm/dl (2.5-4.0); Potassium 3.8 mmol/L (3.5-5.1); Total Protein 5.9 gm/dl (6.0-8.3)
--- NOTE | 2024-03-25 09:17 | Surgery Progress Note ---
Date of Service March 25, 2024 Assessment & Plan (1) Acute appendicitis: Plan: POD 1 appy was perforated with moderate contamination. Keep EUSEBIO/IV antibiotics. pt at risk for ileus and/or abcess would continue to hold plavix stay on clears for now Admission and Anticipated Discharge Date Admission Date: March 23, 2024 Subjective pt seen. feeling fine. wyatt clears Physical Exam Physical Exam: alert. nad abd: soft. expected tenderness. EUSEBIO serous. Results & Data Vital Signs (Past 12 Hours) Vital Signs Temp Pulse Resp BP Pulse Ox O2 Del Method 03/25/24 08:23 76 20 102/52 L 03/25/24 07:16 36.5 C 73 16 100/62 95 Room Air 03/25/24 03:21 36.5 C 91 H 16 125/68 95 Room Air 03/24/24 23:00 36.5 C 75 14 97/57 L 95 Room Air 03/24/24 22:00 36.7 C 74 14 107/65 90 Room Air PG Care Time/CCT Total # of Minutes Spent Total Time Spent with Patient: Total time spent is greater than 50% in coordination of care (as documented) at patient's floor/unit and/or counseling patient: Coding Level of Care Code 20321 Post Operative Follow-Up Diagnoses Acute appendicitis K35.80 Acute appendicitis type: unspecified acute appendicitis type (1) Acute appendicitis Acute appendicitis type: unspecified acute appendicitis type Qualified Code(s): K35.80 - Unspecified acute appendicitis
--- NOTE | 2024-03-25 11:21 | Pharmacy Report ---
Pharmacy Glycemic Short Note 2 - Date of Service March 25, 2024 - Glycemic Short BSG Results (Last 24 hours): 03/24/24 03/24/24 03/24/24 11:49 14:51 17:15 Glucose POC Glucose 234 H 264 H 260 H 03/24/24 03/24/24 03/24/24 19:18 19:57 20:49 Glucose POC Glucose 292 H 232 H 267 H 03/25/24 03/25/24 03/25/24 00:41 03:28 05:49 Glucose 180 H POC Glucose 267 H 266 H 03/25/24 07:53 Glucose POC Glucose 155 H OUTPATIENT ANTIDIABETIC REGIMEN: * Per endo visit November 2023 - uses Omnipod pump * Basal ~20 units/day * Correction factor: 15-20 mg/dL/unit * Carb ratio: 8 g CHO/unit * Total daily dose ~38-39 units * HbA1c 6.3% on 03/24/24 ASSESSMENT: 03/25 * BSG's acutely increased in the latter part of the day yesterday, likely 2nd D5W containing IVF coupled w basal deficiency from transition from pump to SQ. Dextrose-containing fluids were stopped and additional Lantus was administered. Total daily Lantus dose was 5 units above home dose, but this was likely reasonable to help make up for basal insufficiency * POD 1, receiving IV antibiotics * Discussed w RN - unsure if patient is ready to transition back to own pump today * Will switch Lantus to once daily dosing to help facilitate transition back to pump. Will schedule Lantus in afternoon to give best possibility of an easy transition. Will adjust dose back to home total daily dose delivered via pump * Novolog adjusted to parameters similar to reported pump parameters * Patient may be able to be switched back to home pump tomorrow. Zack'neel RN to help facilitate availability of pump supplies tomorrow *if* the transition back is reasonable at that time 03/24 * 84 yo M with type 1 diabetes admitted w appendicitis. Non-surgical management planned for now. Patient remains NPO at this time. Receiving IV antibiotic. On dextrose-containing infusion of D5NS @ 60 mL/hr * No previous inpatient hospital stays to review * Hypoglycemia noted yesterday PM. Omnipod pump was discontinued. Low dose basal administered overnight. Anticipate possible rebound in BSG's as Lantus will take a longer time to come on-board and discontinuation of Omnipod pump will have more of an immediate effect * Basal plan - will reduce home dose by ~25% for NPO status and hypoglycemia yesterday. More aggressive decreases for a patient with type 1 diabetes may cause rebound hyperglycemia * Will initiate Novolog at slightly looser than home regimen parameters, given NPO status and hypoglycemia yesterday PLAN FOR INPATIENT GLYCEMIC CONTROL: * Basal insulin * Lantus 20 units SQ daily @ 1630 * Bolus insulin * NovoLog per scale ACHS or Q6hrs while NPO * Goal Range: Low 110 mg/dL - High 140 mg/dL * Correction Factor: 20 mg/dL/unit * Nutritional / Prandial insulin per carb ratio of 1 unit per 8 grams CHO consumed
[2024-03-25] MEDS: INSULIN ASPART PER UNIT CHARGE SC SCH (12:25)
--- NOTE | 2024-03-25 13:28 | Hospitalist Progress Note ---
Date of Service March 25, 2024 Assessment & Plan (1) Acute appendicitis with perforation and generalized peritonitis: (2) Coronary artery disease: (3) DM type 1 (diabetes mellitus, type 1): Plan Patient remains significantly ill but significantly improved after appendectomy Continues to require hospital level care for IV antibiotics and monitoring of symptoms. Patient at high risk for ileus and possible abscess formation continue postoperative care as directed by surgery Clear liquid diet Continue to monitor glucose and adjust insulin as diet is advanced Continue IV antibiotics Monitor laboratory studies Encourage activity Admission and Anticipated Discharge Date Admission Date: March 23, 2024 Subjective Patient overall states he is feeling better, has been up and ambulating. Physical Exam Physical Exam: Constitutional: Alert, nontoxic HEENT: Mucous membranes moist. Lungs: Clear to auscultation, decreased, no wheezes rales or rhonchi CV: S1-S2, regular Abdomen: Soft, generalized tenderness, EUSEBIO drain in lower quadrant, surgical dressing dry Extremities: No significant edema Neuro: No focal deficits Psych: Cooperative, normal mood Results & Data Results & Data Vital Signs (Past 12 Hours) Vital Signs Temp Pulse Resp BP Pulse Ox O2 Del Method 03/25/24 08:23 76 20 102/52 L 03/25/24 07:16 36.5 C 73 16 100/62 95 Room Air 03/25/24 03:21 36.5 C 91 H 16 125/68 95 Room Air Diagnostic Findings Reviewed imaging, laboratory and diagnostic studies. Pertinent findings as below. Operative report reviewed WBCs 11.1 Hemoglobin 11.5 Glucose 180 (3) DM type 1 (diabetes mellitus, type 1) Diabetes mellitus complication status: with other specified complication Qualified Code(s): E10.69 - Type 1 diabetes mellitus with other specified complication
[2024-03-25] MEDS: LANTUS PER UNIT CHARGE SC SCH (17:02)
[2024-03-25] MEDS: oxyCODONE HCL IR 5 MG TAB (IMMEDIATE RELEASE) PO PRN (17:23)
[2024-03-25] MEDS: INSULIN HUMAN REGULAR PER UNIT 4 UNITS in SYRINGE 0 ML IV STA (19:16)
[2024-03-25] MEDS: INSULIN HUMAN REGULAR PER UNIT 4 UNITS in SYRINGE 3.96 ML IV STA (19:17)
[2024-03-26 07:12] LABS: Basophils # (auto) 0.02 K/uL (0.00-0.20); Basophils % (auto) 0.2 %; Hematocrit (blood only) 36.2 % (42.0-52.0); Immature Granulocytes # (auto) 0.05 K/uL (0.01-0.20); Immature Granulocytes % (auto) 0.5 %; Lymphocytes # (auto) 1.23 K/uL (1.20-3.40); Lymphocytes % (auto) 12.2 %; Mean Corpuscular Hemoglobin 30.5 pg (25.0-34.0); Mean Corpuscular Hgb Conc 33.1 g/dL (32.0-36.0); Mean Corpuscular Volume 92.1 fL (80.0-100.0); Mean Platelet Volume 10.8 fL (9.4-12.4); Monocytes # (auto) 0.66 K/uL (0.11-0.59); Monocytes % (auto) 6.6 %; Neutrophils # (auto) 7.49 K/uL (1.40-6.50); Neutrophils % (auto) 74.5 %; Platelet Count 187 K/uL (130-400); RDW Coefficient of Variation 12.9 % (11.5-14.5); RDW Standard Deviation 43.8 fL (36.4-46.3); Red Blood Count 3.93 M/uL (4.70-6.10); White Blood Count 10.05 K/ul (4.8-10.8)
[2024-03-26 07:40] LABS: Albumin Globulin Ratio 1.1 (0.9-2); Albumin Level 3.1 gm/dl (3.4-5.0); BUN Creatinine Ratio 14.2 (10-20); Bilirubin,Total 0.8 mg/dl (0.2-1.0); Calcium 7.5 mg/dl (8.6-10.3); Creatinine Clr Calc Pharmacy 52.5 ml/min; Est GFR (African American) 75.4 ml/min; Globulin 2.9 gm/dl (2.5-4.0); Potassium 3.6 mmol/L (3.5-5.1)
--- NOTE | 2024-03-26 07:53 | Surgery Progress Note ---
<Statement entered by Tresa Siegel, - 03/26/24 13:57> I have seen and examined this patient with the surgical FOOD AND BEVERAGE CHECKER. I agree with the plan Date of Service March 26, 2024 Assessment & Plan (1) Acute appendicitis with perforation and generalized peritonitis: Plan: POD [address] Eaton VSS , wbc wnl tolerating clears will advance to fulls having BM and flatus abd ttp, kelsey drain serous Will keep another day for IV antbx anticipate d/c tomorrow and reassess KELSEY drain o/p , will need 2 week oral antibx f/u op Dr. Eaton 2 weeks Admission and Anticipated Discharge Date Admission Date: March 23, 2024 Subjective PT reports mild abd tenderness no pain denies f/c , n/v tolerating clear liquids Review of Systems Constitutional: no fever and no chills Respiratory: no dyspnea Cardiovascular: no chest pain Gastrointestinal: + abdominal pain Musculoskeletal: no muscle weakness Physical Exam Constitutional: cooperative and comfortable; no acute distress Respiratory: normal respiratory effort and able to speak in complete sentences; no respiratory distress Gastrointestinal (Abdomen): Inspection/Auscultation: + abdominal surgical incision and + abdominal surgical drain present (KELSEY serous fluid ); abdomen not distended Percussion/Palpation: + abdomen tender and abdomen soft Results & Data Vital Signs (Past 12 Hours) Vital Signs Temp Pulse Resp BP Pulse Ox O2 Del Method 03/26/24 07:40 97.7 F 71 16 121/67 94 Room Air 03/25/24 21:09 97.4 F L 66 18 116/65 96 Room Air Results CBC w Diff Results: RBC 3.93 M/uL (4.70-6.10) L 03/26/24 WBC 10.05 K/ul (4.8-10.8) 03/26/24 Hgb 12.0 g/dl (14.0-18.0) L 03/26/24 Hct 36.2 % (42.0-52.0) L 03/26/24 MCV 92.1 fL (80.0-100.0) 03/26/24 MCH 30.5 pg (25.0-34.0) 03/26/24 MCHC 33.1 g/dL (32.0-36.0) 03/26/24 RDW Standard Deviation 43.8 fL (36.4-46.3) 03/26/24 RDW Coefficient of Variation 12.9 % (11.5-14.5) 03/26/24 Plt Count 187 K/uL (130-400) 03/26/24 MPV 10.8 fL (9.4-12.4) 03/26/24 Neutrophils (%) (Auto) 74.5 % 03/26/24 Lymphocytes (%) (Auto) 12.2 % 03/26/24 Monocytes # (Auto) 0.66 K/uL (0.11-0.59) H 03/26/24 Eosinophils # (Auto) 0.60 K/uL (0.00-0.50) H 03/26/24 Immature Granulocyte % (Auto) 0.5 % 03/26/24 Neutrophils # (Auto) 7.49 K/uL (1.40-6.50) H 03/26/24 Lymphocytes # (Auto) 1.23 K/uL (1.20-3.40) 03/26/24 Monocytes # (Auto) 0.66 K/uL (0.11-0.59) H 03/26/24 Eosinophils # (Auto) 0.60 K/uL (0.00-0.50) H 03/26/24 Basophils # (Auto) 0.02 K/uL (0.00-0.20) 03/26/24 Immature Granulocyte # (Auto) 0.05 K/uL (0.01-0.20) 4 PG Care Time/CCT Total # of Minutes Spent Total Time Spent with Patient: Total time spent is greater than 50% in coordination of care (as documented) at patient's floor/unit and/or counseling patient: Coding Level of Care Code 61051 Post Operative Follow-Up Diagnoses Acute appendicitis with perforation and generalized peritonitis K35.201
--- NOTE | 2024-03-26 12:23 | Hospitalist Progress Note ---
Date of Service March 26, 2024 Assessment & Plan (1) Acute appendicitis with perforation and generalized peritonitis: (2) Coronary artery disease: (3) DM type 1 (diabetes mellitus, type 1): Plan Patient recovering from appendectomy due to perforated appendicitis with peritonitis. Advancing diet per surgery recommendations Continue antibiotics while in the hospital IV Communication with surgical team discussing advancing diet and plans for discharge Continue to monitor glucose, continue to adjust insulin as patient's diet increases per pharmacy protocol Admission and Anticipated Discharge Date Admission Date: March 23, 2024 Subjective Patient feels very good, minimal pain. Moved bowels tolerated clear liquids Physical Exam Physical Exam: Constitutional: Alert, nontoxic, ambulatory HEENT: Mucous membranes moist. Lungs: Clear to auscultation, decreased, no wheezes rales or rhonchi CV: S1-S2, regular Abdomen: Soft, surgical dressing dry and intact, EUSEBIO drain in lower quadrant with serous sanguinous fluid Extremities: No significant edema Neuro: No focal deficits Psych: Cooperative, normal mood Results & Data Results & Data Vital Signs (Past 12 Hours) Vital Signs Temp Pulse Resp BP Pulse Ox O2 Del Method 03/26/24 07:40 36.5 C 71 16 121/67 94 Room Air Diagnostic Findings Reviewed imaging, laboratory and diagnostic studies. Pertinent findings as below. WBCs 10.0 Hemoglobin 12.0 Glucoses reviewed Basic metabolic profile stable (3) DM type 1 (diabetes mellitus, type 1) Diabetes mellitus complication status: with other specified complication Qualified Code(s): E10.69 - Type 1 diabetes mellitus with other specified complication
[2024-03-27 06:59] LABS: Basophils # (auto) 0.03 K/uL (0.00-0.20); Basophils % (auto) 0.3 %; Eosinophils % (auto) 5.7 %; Hematocrit (blood only) 33.7 % (42.0-52.0); Hemoglobin 11.2 g/dl (14.0-18.0); Immature Granulocytes # (auto) 0.02 K/uL (0.01-0.20); Immature Granulocytes % (auto) 0.2 %; Lymphocytes # (auto) 1.45 K/uL (1.20-3.40); Lymphocytes % (auto) 16.4 %; Mean Corpuscular Hemoglobin 30.1 pg (25.0-34.0); Mean Corpuscular Hgb Conc 33.2 g/dL (32.0-36.0); Mean Corpuscular Volume 90.6 fL (80.0-100.0); Mean Platelet Volume 11.1 fL (9.4-12.4); Monocytes # (auto) 0.66 K/uL (0.11-0.59); Monocytes % (auto) 7.5 %; Neutrophils # (auto) 6.18 K/uL (1.40-6.50); Neutrophils % (auto) 69.9 %; Platelet Count 210 K/uL (130-400); RDW Coefficient of Variation 13.1 % (11.5-14.5); RDW Standard Deviation 43.6 fL (36.4-46.3); Red Blood Count 3.72 M/uL (4.70-6.10); White Blood Count 8.84 K/ul (4.8-10.8)
[2024-03-27 07:13] LABS: BUN Creatinine Ratio 13.7 (10-20); Bilirubin,Total 0.6 mg/dl (0.2-1.0); Calcium 7.8 mg/dl (8.6-10.3); Creatinine Clr Calc Pharmacy 58.6 ml/min; Est GFR (African American) 86.1 ml/min; Est GFR (Non-African American) 74.2 ml/min; Potassium 3.8 mmol/L (3.5-5.1)
--- NOTE | 2024-03-27 10:26 | Surgery Progress Note ---
<Statement entered by Tresa Siegel DO - 03/27/24 16:21> I have seen and examined this patient with the surgical PA, I agree with this plan. Date of Service March 27, 2024 Assessment & Plan (1) Acute appendicitis with perforation and generalized peritonitis: Plan: POD#3 laparoscopic appendectomy for perforated appendicitis WBC 8.8, Hbg 11.2. Vitals stable Tolerating fulls, will advance to low fiber Pain controlled. + bowel function EUSEBIO drain serous, output noted 20cc over last 12 hours. will plan on keeping in place until early this wk january f/u in the office on Recommend sending pt home on a course of po abx to complete a total of at least 2 weeks May dispo from our standpoint later today. f/u in the office next thursday with dr. daley for EUSEBIO removal Admission and Anticipated Discharge Date Admission Date: March 23, 2024 Subjective Pt feeling well. Tolerating diet advancement. Pain controlled. + bowel function. Physical Exam Physical Exam: awake/alert, no distress Respiratory: normal respiratory effort Gastrointestinal (Abdomen): Inspection/Auscultation: + abdominal surgical inci dirk (dermabond) and + abdominal surgical drain present (serous) Percussion/Palpation: abdomen soft Results & Data Vital Signs (Past 12 Hours) Vital Signs Temp Pulse Resp BP Pulse Ox O2 Del Method 03/27/24 07:38 98.1 F 73 16 161/76 H 94 Room Air PG Care Time/CCT Total # of Minutes Spent Total Time Spent with Patient: Total time spent is greater than 50% in coordination of care (as documented) at patient's floor/unit and/or counseling patient: Coding Level of Care Code 16885 Post Operative Follow-Up Diagnoses Acute appendicitis with perforation and generalized peritonitis K35.201
--- NOTE | 2024-03-27 10:45 | Discharge Summary ---
Discharge Summary Date of Service March 27, 2024 Principal Dx & Hospital Course #1 = Principal Diagnosis (1) Acute appendicitis with perforation and generalized peritonitis: (2) Coronary artery disease: (3) DM type 1 (diabetes mellitus, type 1): Plan Patient was admitted to the hospital and placed on IV antibiotics for acute appendicitis. Patient was evaluated by surgery. Initial concerns that the patient was on Plavix and risks of bleeding outweigh benefits. However additional history was obtained that the patient had not taken his Plavix for several days prior to admission. With this the patient was taken the operating room. In the operating room had evidence of perforated appendicitis with local peritonitis. Patient's postoperative course was uneventful. His pain was easily controlled. And it was diet was advanced. His WBCs normalized. His pain essentially resolved. He was up and ambulatory and he was tolerating his diet. On the day of discharge his vital signs are stable. He can be discharged home on oral antibiotics and follow-up with surgery for management of his EUSEBIO drain monitoring of his incision and as well as following up with his PCP he will resume his home medications as well as his home insulin pump. Notes For Next Care Provider Follow-up with surgery for EUSEBIO drain management Medication Changes From Visit Augmentin for continued antibiotic management of perforated appendicitis Oxycodone for pain management. Admission HPI Per Admitting Provider 84 year old male with history of DM 1 on insulin pump, CAD s/p stent placement 2003, and other problems noted below presenting with RLQ pain x 2 days. Patient states that since Thursday, he has had progressive RLQ pain, sharp, non radiating, associated with poor appetite, nausea, occasional chills. Pain worsened significantly to the point that he was having difficulty ambulating, prompting ER consult. On admission, patient's VS was relatively stable overall, no fever. WBC 14k CT abdomen/pelvis: acute appendicitis He was given IV Zosy, pain meds ER discussed case with Gen Surg, requested hospitalist service to admit patient given co morbidities. On exam, patient seen resting in bed, very pleasant, not in distress pain is much better as per patient, 2-3/10 no active nausea, chest pain, dyspnea, dizziness He continues to be active at home, doing woodwork. State he walks around the house fine, no unusual shortness of breath, chest pain, dizziness, presyncope, etc Admission Exam Per Admitting Provider See H&P Discharge Exam Constitutional: Alert HEENT: Mucous membranes moist. Lungs: Clear to auscultation, decreased, no wheezes rales or rhonchi CV: S1-S2, regular Abdomen: Soft, minimal lower quadrant tenderness, no guarding, no rigidity, no rebound, EUSEBIO drain in lower quadrant with serosanguineous fluid minimal amount, surgical dressing dry Extremities: No significant edema Neuro: No focal deficits Psych: Cooperative, normal mood Updated Medication List Medication Instructions Recorded Confirmed Type BD Ultra-Fine Eleanor Pen Needle 32 #400 ea 06/06/19 06/25/23 Rx gauge x 5/32" (pen needle, diabetic) atorvastatin 40 mg tablet 40 mg PO HS #90 tabs 06/21/19 03/23/24 History clopidogrel 75 mg tablet 75 mg PO DAILY 06/21/19 03/23/24 History metoprolol succinate 100 mg 100 mg PO DAILY 06/21/19 03/23/24 History tablet,extended release 24 hr omeprazole magnesium 20 mg 20 mg PO DAILY 06/21/19 03/23/24 History tablet,delayed release blood sugar diagnostic (OneTouch #10 ea 06/23/19 06/25/23 History Ultra Blue Test Strip) tamsulosin 0.4 mg capsule (Flomax) 0.4 mg PO DAILY 12/25/20 03/23/24 History glucagon 3 mg/actuation nasal 3 mg intranasal DAILY PRN 05/15/22 03/23/24 History spray (Baqsimi) Hypoglycemia insulin pump cartridge #40 ea 10/11/22 06/25/23 Rx insulin glargine 100 unit/mL (3 30 unit (0.3 mL) subcut DAILY #15 01/03/23 03/23/24 Rx mL) subcutaneous pen (Lantus mL Solostar U-100 Insulin) insulin aspart U-100 100 unit/mL 66 unit (0.66 mL) subcut ONCE #60 11/13/23 03/23/24 Rx subcutaneous solution (Novolog mL U-100 Insulin aspart) insulin pump cart,automated,BT #45 ea 11/13/23 Rx (Omnipod 5 G6 Pods (Gen 5) subcutaneous cartridge) insulin pump cartridge,automated #1 ea 02/11/24 Rx dose,BT with controller subcutaneous (Omnipod 5 G6 Intro Kit (Gen 5) subcutaneous cartridge with controller) amoxicillin 500 mg-potassium 1 tab PO TID 10 days #30 tabs 03/27/24 Rx clavulanate 125 mg tablet (Augmentin) oxycodone 5 mg tablet 5 - 10 mg (1 - 2 x 5 mg) PO 03/27/24 Rx .[id number] PRN pain, for initial therapy, max 6 tabs per day #12 tabs Hospital Stay Data Consultations 03/23/24 14:22 Consult General Surgery Routine 03/23/24 14:51 ED Decision to Admit Stat 03/23/24 15:07 Consult General Surgery Stat Procedures Performed Operation Date: 03/24/24 08:30 Actual Procedures p Laparoscopic Appendectomy(Not Applicable) - Mehran Eaton, DO Diagnostic Imagining Performed 03/23/24 11:45 CT Abd and Pelvis [CT abd pelvis IV con only] Stat Reviewed imaging, laboratory and diagnostic studies. Pertinent findings as below. WBCs 8.8 Hemoglobin 11.2 Electrolytes and renal function within normal range Glucose 108 I refer you to the operative report for details Pending Results Patient Have Any Pending Studies at Discharge: Yes Discharge Instructions Given to Patient (Per Discharging Provider) You have surgical glue called dermabond on your surgical site incisions. You may shower with this on. This will tend to come off within a couple of weeks. Do not pick at it. Please care for your surgical drain as you have been taught prior to discharge from the hospital. Empty drain 2-3x/daily and record output. bring a log with you to the office. otherwise keep drain to bulb suction Please call the office next week to schedule an appointment with Dr. Eaton this upcoming thursday03/30/24 for drain removal You will need to have oral antibiotics for 2 weeks post discharge. Total Time Total Time Spent Total Time Spent (In Minutes): 33
== END 2024-03-27 12:13 | disposition home or self-care (01) | DRG 399 ==
LOC: ED 11:26 → 3N 15:07 → SUATTDRO 15:07 → 3N 16:25